=== PATIENT | male | born 1935 | race Caucasian/White ===

== ENCOUNTER → 2018-05-08 05:52 | Outpatient (CLI) | payer MEDICARE, OTHER, SELFPAY ==
[2017-06-21 12:03] VITALS: BMI 30.9
[2018-05-08 07:36] LABS: AST(SGOT) 15 U/L (15-37); Alanine Aminotransfer ALT/SGPT 22 U/L (16-61); Albumin, Serum 3.5 g/dL (3.2-5.0); Alkaline Phosphatase 71 U/L (45-117); Bilirubin, Direct 0.17 mg/dL (0.00-0.30); Cholesterol 118 mg/dL (200); Globulin 3.3 g/dL (2.2-4.2); High Density Lipoprotein 50 mg/dL; Protein, Total 6.8 g/dL (6.4-8.2); Triglycerides 82 mg/dL; Very Low Density Lipoprotein 16 mg/dL (5-40)
== END ==
PROVIDERS: Family Provider Family Medicine; PCP Family Medicine; Visit Provider Internal Medicine Cardiovascular Disease
DX: E78.5 Hyperlipidemia, unspecified (principal); Z79.899 Other long term (current) drug therapy
CPT/HCPCS: 36415; 80061; 80076

== ENCOUNTER → 2018-09-07 08:27 | Outpatient (CLI) | payer MEDICARE, OTHER, SELFPAY ==
[2017-06-21 12:03] VITALS: BMI 30.9
[2018-09-07 10:27] LABS: Anion Gap 5 (5-15); BUN 26 mg/dL (7-18); BUN/Creat Ratio 15.1 RATIO (10-20); Calcium,Total 8.9 mg/dL (8.5-10.1); Chloride 108 mmol/L (98-107); Creatinine, Serum 1.72 mg/dL (0.70-1.30); EST Glomerular Filtration Rate 41 mL/min (>60); Est Glom Filt Rate - Afr Amer 49 mL/min (>60); Glucose 89 mg/dL (74-106); PSA,Total - Annual Screen 1.15 ng/mL (0.00-4.00); Potassium 4.4 mmol/L (3.5-5.1); Sodium Level 141 mmol/L (136-145)
[2018-09-07 11:02] LABS: Vitamin D,25 Hydroxy 27.6 ng/mL (29.95-100.01)
== END ==
PROVIDERS: Family Provider Family Medicine; PCP Family Medicine; Visit Provider Family Medicine
DX: Z00.00 Encounter for general adult medical examination without abnormal findings (principal); Z12.5 Encounter for screening for malignant neoplasm of prostate
CPT/HCPCS: 36415; 80048; 82306; 84153; G0103

== ENCOUNTER → 2018-11-13 06:06 | Outpatient (CLI) | payer MEDICARE, OTHER, SELFPAY ==
[2017-06-21 12:03] VITALS: BMI 30.9
[2018-05-16 09:16] VITALS: BMI 30.8
[2018-11-13 08:06] LABS: AST(SGOT) 14 U/L (15-37); Alanine Aminotransfer ALT/SGPT 24 U/L (16-61); Albumin, Serum 3.4 g/dL (3.2-5.0); Alkaline Phosphatase 66 U/L (45-117); Cholesterol 131 mg/dL (200); High Density Lipoprotein 55 mg/dL; Protein, Total 6.4 g/dL (6.4-8.2); Triglycerides 92 mg/dL; Very Low Density Lipoprotein 18 mg/dL (5-40)
== END ==
PROVIDERS: Family Provider Family Medicine; PCP Family Medicine; Referring Provider Nurse Practitioner Family; Visit Provider Nurse Practitioner Family
DX: E78.5 Hyperlipidemia, unspecified (principal)
CPT/HCPCS: 36415; 80061; 80076

== ENCOUNTER → 2019-01-11 09:37 | Outpatient (CLI) | payer MEDICARE, OTHER, SELFPAY ==
[2017-06-21 12:03] VITALS: BMI 30.9
[2018-12-19 09:48] VITALS: BMI 31.1
--- NOTE | 2019-01-11 09:40 | STEWCON_ITS ---
Reason For Study: CAD Stress Results Protocol: Vincenzo Protocol Maximum Predicted HR: 137 bpm Target HR: 116 bpm % Maximum Predicted HR: 115 % DurationHeart Rate Stage (mm:ss) (bpm) BP Comment Baseline 81 128/80No Chest Pain; Diluted Definity 3 ML Given Vincenzo Protocol Stage I 3:00 127 138/76No Chest Pain Vincenzo Protocol Stage II 3:00 157 160/72No Chest Pain; Mild Dyspnea Recovery 92 120/76No Chest Pain Stress Duration: 6:00 mm:ss Maximum Stress HR: 157 bpm METS: 7 Baseline Echocardiogram Findings The estimated ejection fraction is 65 %. Stress Echo Wall motion Data Resting WM Intermediate WM Stress WM Resting Wall Motion Wall Motion Stress No regional wall motion Mid-Lateral : Severely abnormalities noted. Hypokinetic. Mid-anteroseptal : Mildly hypokinetic. Mid-Anterior : Mildly hypokinetic. EKG Data Normal intervals are noted. The patient exercised according to the regular Vincenzo protocol for a total duration of 6:00. The maximum heart rate attained was 157 beats per minute. This was 114% of maximum predicted heart rate. The patient exercised into stage 3 of the Vincenzo protocol. During stress, there were no ST or T wave changes noted to suggest ischemia. No clinical angina was noted. Interpretation Summary The estimated ejection fraction is 65 %. Mid-Lateral : Severely Hypokinetic. Mid-anteroseptal : Mildly hypokinetic Mid-Anterior : Mildly hypokinetic Abnormal, adequate, treadmill echocardiogram. Positive for ischemia by echocardiographic criteria. No anginal symptoms noted. Rare PVCs and ventricular couplets noted during exercise. Appropriate blood pressure response to exercise. Average exercise capacity for age. Patient developed what appeared to be mid anterior and mid lateral hypokinesis at peak exercise. Final LVEF of 45%. Patient tolerated procedure well. The study was technically difficult. Contrast injection was performed. Ordering Physician: Vinnie Renee Referring Physician: Sunny Justice Performed By: Melissa Verde RDCS, RVT
== END ==
PROVIDERS: Family Provider Family Medicine; PCP Family Medicine; Referring Provider Internal Medicine Cardiovascular Disease; Visit Provider Internal Medicine Cardiovascular Disease
DX: I25.10 Atherosclerotic heart disease of native coronary artery without angina pectoris (principal); I10 Essential (primary) hypertension; E78.5 Hyperlipidemia, unspecified; Z95.5 Presence of coronary angioplasty implant and graft
CPT/HCPCS: 93017; 93350; Q9957; A4216; C8928

== ENCOUNTER → 2019-01-12 05:27 | Outpatient (CLI) | payer MEDICARE, OTHER, SELFPAY ==
[2017-06-21 12:03] VITALS: BMI 30.9
[2018-12-19 09:48] VITALS: BMI 31.1
[2019-01-12 07:25] LABS: Prothrombin Time (Protime)PT. 12.9 SECONDS (11.7-14.9)
[2019-01-12 07:26] LABS: Partial Thromboplast Time 35.2 Seconds (24.1-36.2)
[2019-01-12 07:28] LABS: Hematocrit 45.5 % (40-54); Hemoglobin 14.3 g/dl (13.0-16.5); Mean Corp Hgb Conc 31.4 g/gl (32-36); Mean Corpuscular Hgb 29.5 pg (27.0-32.0); Mean Platelet Vol. 10.3 fl (6.2-12.0); Platelet Count 243 K/mm3 (150-450); RBC Distribution Width CV 13.4 % (11.6-14.6); RBC Distribution Width SD 46.2 fl (35.1-43.9); Red Blood Count 4.84 M/mm3 (4.6-6.2); White Blood Count 6.6 K/mm3 (4.4-11.0)
[2019-01-12 07:30] LABS: Scan Indicated on CBC? Y/N NO
[2019-01-12 07:42] LABS: Anion Gap 6 (5-15); BUN 23 mg/dL (7-18); BUN/Creat Ratio 18.4 RATIO (10-20); Calcium,Total 8.8 mg/dL (8.5-10.1); Chloride 106 mmol/L (98-107); Creatinine, Serum 1.25 mg/dL (0.70-1.30); EST Glomerular Filtration Rate 59 mL/min (>60); Est Glom Filt Rate - Afr Amer 71 mL/min (>60); Glucose 93 mg/dL (74-106); Potassium 4.1 mmol/L (3.5-5.1); Sodium Level 141 mmol/L (136-145)
--- NOTE | 2019-01-12 08:03 | RAD_ITS ---
STUDY: X-RAY CHEST REASON FOR EXAM: Male, 83 years old. Abnormal stress test TECHNIQUE: PA and lateral views of the chest. COMPARISON: June 16, 2017 chest x-ray FINDINGS: The lungs are clear and expanded. There is no demonstrated pleural abnormality. Normal size heart. Normal mediastinum and chong. Normal visualized pulmonary arteries. There is atherosclerotic calcification of the aortic arch with tortuosity. There are diffuse degenerative changes of the visualized thoracic spine. Normal visualized ribs, clavicles, and shoulders. There is no demonstrated abnormality of the visualized soft tissue structures of the upper abdomen. RAD/Chest PA and Lateral IMPRESSION: Degenerative changes, as described above. No demonstrated acute cardiopulmonary process. Electronically Signed: Violet Bass MD at 19:54 EST Tel , Service support ,
== END ==
PROVIDERS: Family Provider Family Medicine; PCP Family Medicine; Referring Provider Internal Medicine Cardiovascular Disease; Visit Provider Internal Medicine Cardiovascular Disease
DX: I25.10 Atherosclerotic heart disease of native coronary artery without angina pectoris (principal); R94.39 Abnormal result of other cardiovascular function study; I48.0 Paroxysmal atrial fibrillation; Z95.5 Presence of coronary angioplasty implant and graft
CPT/HCPCS: 36415; 71046; 80048; 85027; 85610; 85730

== ENCOUNTER 2019-01-17 06:48 | Day surgery (SDC) | payer MEDICARE, OTHER, SELFPAY ==
[2017-06-21 12:03] VITALS: BMI 30.9
[2018-12-19 09:48] VITALS: BMI 31.1
[2019-01-12 11:25] VITALS: BMI 31.7
[2019-01-16 06:59] VITALS: BMI 31.5
--- NOTE | 2019-01-17 08:22 | CL.D_ITS ---
Patient Name: MOLLY ANDERSEN Study Date: 01/17/2019 Performing: Vinnie Renee MD Ht: 70.07 inches 178 cm : 1935 Wt: 220.46 lbs 100 kg Age: 83 Gender: male BSA: 2.18 PROCEDURE(S) PERFORMED [id number]/COR/LV CLINICAL PROFILE AND INDICATIONS Indications: Stable Known CAD, Stable Known CAD Heart Failure: None Stress/Imaging Date: 01/11/2019Stress Echocardiogram: Positive Low Risk Angina Classification Anginal Classification w/in 2 Weeks: No symptoms CAD Presentations: No Sxs, no angina. Comorbidities/Risk Factors: Hypertension Dyslipidemia Prior PCI CONCLUSIONS Non obstructive coronary arteries Normal LV size, wall motion,and systolic function False positive stress test. RECOMMENDATIONS Management as per referring Cranberry Sorter DESCRIPTION OF PROCEDURE The patient arrived to the procedure lab. The risks and benefits of the procedure as well as a full d escription of our services here and current unavailability of surgical backup were fully explained to the patient and/or their significant other prior to the catheterization. The Timeout was completed, verifying the correct patient and procedure. The patient's procedural site was prepped and draped in the usual fashion. Local anesthetic was given subcutaneously to right groin region with Lidocaine 2%. Using a modified Seldinger technique, arterial access was obtained via the right femoral artery, a 4 Fr sheath was inserted Left Coronary Artery selective angiography was performed in multiple views us ing a 4 Fr. JL5 catheter. Right Coronary Artery selective angiography was then performed in multiple views using a 4 Fr. 3DRC catheter. Left Ventriculography was performed in MCKEE projection using a 4 Fr . Pigtail catheter. LV to AO pullback pressures were then recorded.The arterial sheath was pulled and manual compression applied until hemostasis is achieved. CORONARY ANGIOGRAPHY DOMINANCE: Right Dominant LEFT HEART ASSESSMENT Left Ventricular Ejection Fraction: by LV Gram 65 % Normal LV wall motion Normal Left Ventricular systolic function LEFT MAIN: Angiographically normal LEFT ANTERIOR DECENDING ARTERY: PROX LAD: Mild luminal irregularities less than 30% MID LAD: Previously placed stent is patent DISTAL LAD: Mild luminal irregularities less than 30% CIRCUMFLEX ARTERY: OM 1: Proximal - Previously placed stent is patent RIGHT CORONARY ARTERY: MID RCA: Mild calcification, Mild luminal irregularities less than 30% RT PDA: Mid - Mild luminal irregularities less than 30% COMPLICATIONS No Complications PROCEDURE MEDICATIONS Versed 1 mg IV Oxygen: 2 L/min via nasal cannula IV Fluids: .9 NaCl increased to WO ml/hr 01/17/2019 08:06:07 SUMMARY OF HEMODYNAMIC DATA Time AIR REST ECG 07:12:41 AO 111/64 (81) SA 08:05:23 LV 117/-20, 2 08:13:03 LV 112/-22, 1 08:13:09 LVp 113/-23, 0 08:13:16 AOp 113/51 (78) 08:13:21 Signed By Vinnie Renee MD On 01/17/2019 08:21:39 Vinnie Renee MD
== END 2019-01-17 12:45 | disposition home or self-care (01) ==
LOC: CLSP 06:48
PROVIDERS: Family Provider Family Medicine; PCP Family Medicine; Referring Provider Internal Medicine Cardiovascular Disease; Visit Provider Internal Medicine Cardiovascular Disease
DX: I25.10 Atherosclerotic heart disease of native coronary artery without angina pectoris (principal); I48.0 Paroxysmal atrial fibrillation; I10 Essential (primary) hypertension; E78.5 Hyperlipidemia, unspecified; N40.0 Benign prostatic hyperplasia without lower urinary tract symptoms; E66.9 Obesity, unspecified; Z79.02 Long term (current) use of antithrombotics/antiplatelets; Z79.82 Long term (current) use of aspirin; Z79.899 Other long term (current) drug therapy; Z87.891 Personal history of nicotine dependence; Z95.5 Presence of coronary angioplasty implant and graft
CPT/HCPCS: 93458; 99152; J7040; C1769; C1894; Q9967

== ENCOUNTER → 2019-04-09 | Outpatient (CLI) | payer MEDICARE, OTHER, SELFPAY ==
[2017-06-21 12:03] VITALS: BMI 30.9
[2019-04-09 06:03] VITALS: BMI 31.7
[2019-04-09 08:01] LABS: AST(SGOT) 20 U/L (15-37); Alanine Aminotransfer ALT/SGPT 25 U/L (16-61); Albumin, Serum 3.6 g/dL (3.2-5.0); Alkaline Phosphatase 63 U/L (45-117); Bilirubin, Direct 0.23 mg/dL (0.00-0.30); Cholesterol 131 mg/dL (200); Globulin 3.1 g/dL (2.2-4.2); High Density Lipoprotein 60 mg/dL; Protein, Total 6.7 g/dL (6.4-8.2); Triglycerides 92 mg/dL; Very Low Density Lipoprotein 18 mg/dL (5-40)
== END | disposition home or self-care (01) ==
LOC: LAB 06:05
PROVIDERS: Family Provider Family Medicine; PCP Family Medicine; Referring Provider Nurse Practitioner Family; Visit Provider Nurse Practitioner Family
DX: E78.5 Hyperlipidemia, unspecified (principal)
CPT/HCPCS: 36415; 80061; 80076

== ENCOUNTER → 2019-09-24 05:56 | Outpatient (CLI) | payer MEDICARE, OTHER, SELFPAY ==
[2017-06-21 12:03] VITALS: BMI 30.9
[2019-08-23 08:45] VITALS: BMI 30.5
[2019-09-24 08:08] LABS: Anion Gap 4 (5-15); BUN 21 mg/dL (7-18); BUN/Creat Ratio 17.6 RATIO (10-20); Calcium,Total 9.3 mg/dL (8.5-10.1); Chloride 108 mmol/L (98-107); Cholesterol 152 mg/dL (200); Creatinine, Serum 1.19 mg/dL (0.70-1.30); EST Glomerular Filtration Rate 62 mL/min (>60); Est Glom Filt Rate - Afr Amer 75 mL/min (>60); Glucose 95 mg/dL (74-106); High Density Lipoprotein 60 mg/dL; PSA,Total - Annual Screen 1.11 ng/mL (0.00-4.00); Potassium 4.2 mmol/L (3.5-5.1); Sodium Level 143 mmol/L (136-145); Triglycerides 105 mg/dL; Very Low Density Lipoprotein 21 mg/dL (5-40)
== END ==
PROVIDERS: Family Provider Family Medicine; PCP Family Medicine; Referring Provider Family Medicine; Visit Provider Family Medicine
DX: Z00.00 Encounter for general adult medical examination without abnormal findings (principal)
CPT/HCPCS: 36415; 80048; 80061; 84153; G0103

== ENCOUNTER → 2020-03-20 08:53 | Outpatient (CLI) | payer MEDICARE, OTHER, SELFPAY ==
[2017-06-21 12:03] VITALS: BMI 30.9
[2019-12-20 09:46] VITALS: BMI 29.8
[2020-03-20 09:57] LABS: Anion Gap 8 (5-15); BUN 24 mg/dL (7-18); BUN/Creat Ratio 17.1 RATIO (10-20); Calcium,Total 9.2 mg/dL (8.5-10.1); Chloride 105 mmol/L (98-107); EST Glomerular Filtration Rate 51 mL/min (>60); Est Glom Filt Rate - Afr Amer 62 mL/min (>60); Glucose 92 mg/dL (74-106); Potassium 4.3 mmol/L (3.5-5.1); Sodium Level 142 mmol/L (136-145)
== END ==
PROVIDERS: PCP Family Medicine; Referring Provider Family Medicine; Visit Provider Family Medicine
DX: I25.10 Atherosclerotic heart disease of native coronary artery without angina pectoris (principal)
CPT/HCPCS: 36415; 80048

== ENCOUNTER → 2020-06-27 06:19 | Outpatient (CLI) | payer MEDICARE, OTHER, SELFPAY ==
[2017-06-21 12:03] VITALS: BMI 30.9
[2020-06-24 08:57] VITALS: BMI 29.9
[2020-06-27 08:06] LABS: AST(SGOT) 17 U/L (15-37); Alanine Aminotransfer ALT/SGPT 21 U/L (16-61); Albumin, Serum 3.5 g/dL (3.2-5.0); Alkaline Phosphatase 64 U/L (45-117); Bilirubin, Direct 0.23 mg/dL (0.00-0.30); Cholesterol 133 mg/dL (200); High Density Lipoprotein 53 mg/dL; Protein, Total 6.5 g/dL (6.4-8.2); Triglycerides 83 mg/dL; Very Low Density Lipoprotein 17 mg/dL (5-40)
== END ==
PROVIDERS: PCP Family Medicine; Referring Provider Internal Medicine Cardiovascular Disease; Visit Provider Internal Medicine Cardiovascular Disease
DX: E78.5 Hyperlipidemia, unspecified (principal); I25.10 Atherosclerotic heart disease of native coronary artery without angina pectoris
CPT/HCPCS: 36415; 80061; 80076

== ENCOUNTER → 2020-09-19 10:51 | Outpatient (CLI) | payer MEDICARE, OTHER, SELFPAY ==
[2017-06-21 12:03] VITALS: BMI 30.9
[2020-06-24 08:57] VITALS: BMI 29.9
[2020-09-19 11:45] LABS: Anion Gap 3 (5-15); BUN 30 mg/dL (7-18); BUN/Creat Ratio 20.3 RATIO (10-20); Calcium,Total 8.7 mg/dL (8.5-10.1); Chloride 105 mmol/L (98-107); Creatinine, Serum 1.48 mg/dL (0.70-1.30); EST Glomerular Filtration Rate 48 mL/min (>60); Est Glom Filt Rate - Afr Amer 58 mL/min (>60); Glucose 92 mg/dL (74-106); Potassium 4.1 mmol/L (3.5-5.1); Sodium Level 139 mmol/L (136-145)
== END ==
PROVIDERS: PCP Family Medicine; Visit Provider Family Medicine
DX: N28.9 Disorder of kidney and ureter, unspecified (principal)
CPT/HCPCS: 36415; 80048

== ENCOUNTER → 2021-03-20 08:06 | Outpatient (CLI) | payer MEDICARE, OTHER, SELFPAY ==
[2017-06-21 12:03] VITALS: BMI 30.9
[2020-10-14 11:09] VITALS: BMI 29.9
[2021-03-20 10:15] LABS: ALB/GLOB Ratio 1.2 RATIO (0.9-2.4); AST(SGOT) 13 U/L (15-37); Alanine Aminotransfer ALT/SGPT 19 U/L (16-61); Albumin, Serum 3.7 g/dL (3.2-5.0); Alkaline Phosphatase 85 U/L (45-117); Anion Gap 4 (5-15); BUN 31 mg/dL (7-18); BUN/Creat Ratio 20.7 RATIO (10-20); Calcium,Total 9.3 mg/dL (8.5-10.1); Chloride 107 mmol/L (98-107); Cholesterol 143 mg/dL (200); EST Glomerular Filtration Rate 47 mL/min (>60); Est Glom Filt Rate - Afr Amer 57 mL/min (>60); Globulin 3.2 g/dL (2.2-4.2); Glucose 86 mg/dL (74-106); High Density Lipoprotein 70 mg/dL; Potassium 4.4 mmol/L (3.5-5.1); Protein, Total 6.9 g/dL (6.4-8.2); Sodium Level 140 mmol/L (136-145); Triglycerides 74 mg/dL; Very Low Density Lipoprotein 15 mg/dL (5-40)
== END ==
PROVIDERS: PCP Family Medicine; Referring Provider Family Medicine; Visit Provider Family Medicine
DX: E78.5 Hyperlipidemia, unspecified (principal)
CPT/HCPCS: 36415; 80053; 80061

== ENCOUNTER 2021-08-15 09:36 | Outpatient (CLI) | payer MEDICARE, OTHER, SELFPAY ==
[2017-06-21 12:03] VITALS: BMI 30.9
[2021-08-15] MEDS: 0.9% Saline Lock 10 ML Syringe IV (09:56)
[2021-08-15 10:01] VITALS: BP 129/81; PULSE 100; RESP 16; TEMP 36.6; O2SAT 94; BMI 28.7
[2021-08-15 10:45] VITALS: BP 112/70; PULSE 76; RESP 16; TEMP 36.9; O2SAT 98
[2021-08-15 11:52] VITALS: BP 128/84; PULSE 83; RESP 16; TEMP 36.7; O2SAT 96
== END 2021-08-15 11:45 | disposition home or self-care (01) ==
LOC: MS3OUT 09:37 → MS3 09:38
PROVIDERS: PCP Family Medicine; Referring Provider Nurse Practitioner Adult Health; Visit Provider Nurse Practitioner Adult Health
DX: Z23 Encounter for immunization (principal); U07.1 COVID-19
CPT/HCPCS: J7050; M0243; A4216; Q0240

== ENCOUNTER → 2021-09-17 11:47 | Outpatient (CLI) | payer MEDICARE, OTHER, SELFPAY ==
[2017-06-21 12:03] VITALS: BMI 30.9
[2021-09-17 13:20] LABS: Anion Gap 6 (5-15); BUN 26 mg/dL (7-18); BUN/Creat Ratio 17.6 RATIO (10-20); Calcium,Total 9.5 mg/dL (8.5-10.1); Chloride 103 mmol/L (98-107); Creatinine, Serum 1.48 mg/dL (0.70-1.30); EST Glomerular Filtration Rate 48 mL/min (>60); Est Glom Filt Rate - Afr Amer 58 mL/min (>60); Glucose 111 mg/dL (74-106); Potassium 4.3 mmol/L (3.5-5.1); Sodium Level 139 mmol/L (136-145)
== END ==
PROVIDERS: PCP Family Medicine; Referring Provider Family Medicine; Visit Provider Family Medicine
DX: I10 Essential (primary) hypertension (principal)
CPT/HCPCS: 36415; 80048

== ENCOUNTER → 2022-03-18 | Outpatient (CLI) | payer MEDICARE, OTHER, SELFPAY ==
[2017-06-21 12:03] VITALS: BMI 30.9
[2022-03-18 10:12] LABS: Anion Gap 4 (5-15); BUN 28 mg/dL (7-18); BUN/Creat Ratio 17.6 RATIO (10-20); Calcium,Total 9.4 mg/dL (8.5-10.1); Chloride 106 mmol/L (98-107); Cholesterol 146 mg/dL (200); Creatinine, Serum 1.59 mg/dL (0.70-1.30); EST Glomerular Filtration Rate 44 mL/min (>60); Est Glom Filt Rate - Afr Amer 53 mL/min (>60); Glucose 97 mg/dL (74-106); High Density Lipoprotein 64 mg/dL; Potassium 4.9 mmol/L (3.5-5.1); Sodium Level 141 mmol/L (136-145); Triglycerides 76 mg/dL; Very Low Density Lipoprotein 15 mg/dL (5-40)
== END | disposition home or self-care (01) ==
LOC: MFPLAB 08:36
PROVIDERS: PCP Family Medicine; Visit Provider Family Medicine
DX: I10 Essential (primary) hypertension (principal)
CPT/HCPCS: 36415; 80048; 80061

== ENCOUNTER → 2022-09-03 | Outpatient (CLI) | payer MEDICARE, OTHER, SELFPAY ==
[2017-06-21 12:03] VITALS: BMI 30.9
--- NOTE | 2022-09-03 12:28 | RAD_ITS ---
STUDY: X-RAY CHEST REASON FOR EXAM: Male, 87 years old. SOB, lung sounds dim with rales, prod cough TECHNIQUE: PA or AP. Lateral. COMPARISON: 01/12/2019 FINDINGS: The lungs are clear and expanded. There is no demonstrated pleural abnormality. Normal size heart. Normal mediastinum and chong. Normal visualized pulmonary arteries. Mildly tortuous descending aorta. Moderate degenerative changes mid and lower thoracic spine. Normal visualized ribs, clavicles, and shoulders. There is no demonstrated abnormality of the visualized soft tissue structures of the upper abdomen. Stable findings. RAD/Chest PA and Lateral IMPRESSION: Degenerative changes mid and lower thoracic spine. Mildly tortuous descending aorta. Electronically Signed: Fidencio Marshall MD, ANA at 13:24 EDT ,
[2022-09-03 13:31] LABS: Hematocrit 48.6 % (40-54); Hemoglobin 16.2 g/dL (13.0-16.5); Mean Corp Hgb Conc 33.3 g/dL (32-36); Mean Corpuscular Hgb 31.5 pg (27.0-32.0); Mean Corpuscular Volume 94.4 fL (80-94); Mean Platelet Vol. 10.1 fl (6.2-12.0); Platelet Count 271 K/mm3 (150-450); RBC Distribution Width CV 13.6 % (11.6-14.6); Red Blood Count 5.15 M/mm3 (4.6-6.2); White Blood Count 8.6 K/mm3 (4.4-11.0)
[2022-09-03 13:39] LABS: Prothrombin Time (Protime)PT. 12.9 SECONDS (11.7-14.9)
[2022-09-03 14:05] LABS: BNP,B-Type NATRIURETIC PEPTIDE 327.6 pg/mL (0-100)
[2022-09-03 14:17] LABS: Anion Gap 4 (5-15); BUN 25 mg/dL (7-18); BUN/Creat Ratio 14.6 RATIO (10-20); Calcium,Total 10.3 mg/dL (8.5-10.1); Chloride 106 mmol/L (98-107); Creatinine, Serum 1.71 mg/dL (0.70-1.30); EST Glomerular Filtration Rate 40 mL/min (>60); Est Glom Filt Rate - Afr Amer 49 mL/min (>60); Glucose 102 mg/dL (74-106); Magnesium 2.1 mg/dL (1.6-2.6); Potassium 4.5 mmol/L (3.5-5.1); Sodium Level 139 mmol/L (136-145); T4 Total, Thyroxin 8.6 ug/dL (4.5-12.1); Thyroid Stim Hormone (TSH) 3.66 uIU/mL (0.358-3.74)
== END | disposition home or self-care (01) ==
LOC: RAD 12:14
PROVIDERS: PCP Family Medicine; Referring Provider Internal Medicine Cardiovascular Disease; Visit Provider Internal Medicine Cardiovascular Disease
DX: R06.02 Shortness of breath (principal); I48.0 Paroxysmal atrial fibrillation; R07.89 Other chest pain; I25.10 Atherosclerotic heart disease of native coronary artery without angina pectoris; Z95.5 Presence of coronary angioplasty implant and graft; I10 Essential (primary) hypertension; R05.8 Other specified cough
CPT/HCPCS: 36415; 71046; 80048; 83735; 83880; 84436; 84443; 85027; 85610

== ENCOUNTER → 2022-09-09 | Outpatient (CLI) | payer MEDICARE, OTHER, SELFPAY ==
[2017-06-21 12:03] VITALS: BMI 30.9
--- NOTE | 2022-09-09 13:46 | ECHOD_ITS ---
Reason For Study: AFIB.FLUTTER Procedure This was a 2D Doppler, Color Flow transthoracic echocardiogram. Exam performed in department. Left Ventricle Normal LV size. The estimated ejection fraction is 40 %. Stage 3 diastolic dysfunction. There is mild global hypokinesis of the left ventricle. Right Ventricle Normal RV size. Normal systolic function. Atria The left atrium is moderately enlarged. The right atrium is mildly enlarged. Mitral Valve There is mild mitral annular calcification. Mild (1+) eccentric mitral valve insufficiency. Tricuspid Valve Normal tricuspid valve. Mild (1+) tricuspid valve insufficiency. Pulmonary artery systolic pressure is 35 mmHg. Aortic Valve Trisinus/trileaflet aortic valve. Mild focal aortic valve calcification. Pulmonic Valve Normal pulmonic valve. Great Vessels Normal aortic root. The pulmonary artery is normal size. Normal inferior vena cava. Pericardium/Pleural No pericardial effusion. MMode/2D Measurements & Calculations LVIDd: 4.8 cm IVSd: 0.91 cm Ao root diam: 3.9 cm LVIDs: 3.7 cm LVPWd: 1.1 cm FS: 23.1 % LAV(MOD-bp): 113.9 ml LVAd ap4: 29.0 cm2 LVAd ap2: 24.4 cm2 LAV(MOD-bp) Indexed: 54.0 ml/m2 LVLd ap4: 7.7 cm LVLd ap2: 7.7 cm LAV(MOD-sp2): 125.3 ml EDV(MOD-sp4): 94.9 ml EDV(MOD-sp2): 66.9 ml LAV(MOD-sp4): 102.9 ml EDV(sp4-el): 92.8 ml EDV(sp2-el): 65.0 ml LVAs ap4: 22.0 cm2 LVAs ap2: 17.2 cm2 LVLs ap4: 7.2 cm LVLs ap2: 7.3 cm ESV(MOD-sp4): 58.4 ml ESV(MOD-sp2): 35.3 ml ESV(sp4-el): 57.1 ml ESV(sp2-el): 34.2 ml EF(MOD-sp4): 38.5 % EF(MOD-sp2): 47.3 % EF(sp4-el): 38.4 % SV(MOD-sp4): 36.5 ml SV(MOD-sp2): 31.6 ml SV(sp4-el): 35.6 ml LA dimension(2D): 5.4 cm LA A4 area: 29.4 cm2 RA A4 area: 26.6 cm2 Time Measurements MV dec time: 0.19 sec Doppler Measurements & Calculations MV E max will: 89.8 cm/sec Lat Peak E' Will: 6.9 cm/sec Med Peak E' Iwll: 4.1 cm/sec MV A max will: 30.5 cm/sec E/E' lat: 13.1 E/E' med: 22.1 MV E/A: 2.9 MV dec slope: 483.5 cm/sec2 Ao V2 max: 185.0 cm/sec LV V1 max: 77.9 cm/sec Ao max P.8 mmHg LV V1 max P.4 mmHg Ao V2 mean: 131.6 cm/sec LV V1 mean P.1 mmHg Ao mean P.9 mmHg LV V1 mean: 49.1 cm/sec Ao V2 VTI: 37.7 cm LV V1 VTI: 15.6 cm PA V2 max: 82.3 cm/sec TR max will: 305.9 cm/sec TR max P.8 mmHg ECHO/Echo Complete Interpretation Summary Normal LV size. The estimated ejection fraction is 40 %. There is mild global hypokinesis of the left ventricle. The left atrium is moderately enlarged. Pulmonary artery systolic pressure is 35 mmHg. Stage 3 diastolic dysfunction. The right atrium is mildly enlarged. Ordering Physician: Keyshawn Do Referring Physician: Sunny Justice Performed By: Melissa Verde, RDCS, RVT
== END | disposition home or self-care (01) ==
LOC: CVS 13:45
PROVIDERS: PCP Family Medicine; Referring Provider Nurse Practitioner Gerontology; Visit Provider Nurse Practitioner Gerontology
DX: R06.09 Other forms of dyspnea (principal); I48.91 Unspecified atrial fibrillation; I25.10 Atherosclerotic heart disease of native coronary artery without angina pectoris; Z95.5 Presence of coronary angioplasty implant and graft
CPT/HCPCS: 93306

== ENCOUNTER 2022-10-05 08:02 | Outpatient (RCR) | payer MEDICARE, OTHER, SELFPAY ==
[2017-06-21 12:03] VITALS: BMI 30.9
[2022-09-07 10:41] LABS: International Normalized Ratio 1.4; Prothrombin Time (Protime)PT. 16.6 SECONDS (11.7-14.9)
[2022-09-07 10:54] LABS: Anion Gap 10 (5-15); BUN 52 mg/dL (7-18); BUN/Creat Ratio 20.7 RATIO (10-20); Calcium,Total 9.8 mg/dL (8.5-10.1); Chloride 98 mmol/L (98-107); Creatinine, Serum 2.51 mg/dL (0.70-1.30); EST Glomerular Filtration Rate 26 mL/min (>60); Est Glom Filt Rate - Afr Amer 31 mL/min (>60); Glucose 121 mg/dL (74-106); Potassium 3.7 mmol/L (3.5-5.1); Sodium Level 138 mmol/L (136-145)
[2022-09-14 09:14] LABS: Prothrombin Time (Protime)PT. 55.8 SECONDS (11.7-14.9)
[2022-09-14 09:18] LABS: International Normalized Ratio 6.3
[2022-09-14 09:37] LABS: Anion Gap 5 (5-15); BUN 31 mg/dL (7-18); BUN/Creat Ratio 18.6 RATIO (10-20); Calcium,Total 9.1 mg/dL (8.5-10.1); Chloride 107 mmol/L (98-107); Creatinine, Serum 1.67 mg/dL (0.70-1.30); EST Glomerular Filtration Rate 42 mL/min (>60); Est Glom Filt Rate - Afr Amer 50 mL/min (>60); Glucose 98 mg/dL (74-106); Potassium 4.5 mmol/L (3.5-5.1); Sodium Level 141 mmol/L (136-145)
[2022-09-17 10:10] LABS: International Normalized Ratio 5.8
[2022-09-20 09:06] LABS: Hematocrit 44.2 % (40-54); Hemoglobin 14.6 g/dL (13.0-16.5); Mean Corpuscular Hgb 31.2 pg (27.0-32.0); Mean Corpuscular Volume 94.4 fL (80-94); Mean Platelet Vol. 9.8 fl (6.2-12.0); Platelet Count 243 K/mm3 (150-450); RBC Distribution Width CV 13.9 % (11.6-14.6); RBC Distribution Width SD 47.7 fl (35.1-43.9); Red Blood Count 4.68 M/mm3 (4.6-6.2); White Blood Count 6.7 K/mm3 (4.4-11.0)
[2022-09-20 09:27] LABS: Prothrombin Time (Protime)PT. 51.2 SECONDS (11.7-14.9)
[2022-09-20 09:29] LABS: BNP,B-Type NATRIURETIC PEPTIDE 203.9 pg/mL (0-100); International Normalized Ratio 5.7
[2022-09-20 09:30] LABS: Anion Gap 7 (5-15); BUN 28 mg/dL (7-18); BUN/Creat Ratio 15.6 RATIO (10-20); Chloride 104 mmol/L (98-107); Creatinine, Serum 1.79 mg/dL (0.70-1.30); EST Glomerular Filtration Rate 38 mL/min (>60); Est Glom Filt Rate - Afr Amer 46 mL/min (>60); Glucose 110 mg/dL (74-106); Potassium 4.3 mmol/L (3.5-5.1); Sodium Level 140 mmol/L (136-145)
[2022-09-22 07:22] LABS: Prothrombin Time (Protime)PT. 62.6 SECONDS (11.7-14.9)
[2022-09-22 08:53] LABS: International Normalized Ratio 7.3
[2022-09-22 09:36] LABS: AST(SGOT) 16 U/L (15-37); Alanine Aminotransfer ALT/SGPT 21 U/L (16-61); Albumin, Serum 3.6 g/dL (3.2-5.0); Alkaline Phosphatase 65 U/L (45-117); Bilirubin, Direct 0.22 mg/dL (0.00-0.30); Globulin 3.1 g/dL (2.2-4.2); Protein, Total 6.7 g/dL (6.4-8.2)
[2022-09-24 09:02] LABS: Prothrombin Time (Protime)PT. 46.8 SECONDS (11.7-14.9)
[2022-09-24 09:08] LABS: International Normalized Ratio 5.1
[2022-09-27 08:59] LABS: International Normalized Ratio 1.8; Prothrombin Time (Protime)PT. 20.5 SECONDS (11.7-14.9)
[2022-09-29 07:00] LABS: International Normalized Ratio 1.4; Prothrombin Time (Protime)PT. 16.8 SECONDS (11.7-14.9)
[2022-10-05 08:34] LABS: International Normalized Ratio 1.1; Prothrombin Time (Protime)PT. 13.9 SECONDS (11.7-14.9)
== END 2022-10-06 18:00 | disposition home or self-care (01) ==
LOC: LAB 08:02
PROVIDERS: Nurse Practitioner Family; Nurse Practitioner Gerontology; Physician Assistant Medical; PCP Family Medicine; Referring Provider Internal Medicine Cardiovascular Disease; Visit Provider Internal Medicine Cardiovascular Disease
DX: I48.0 Paroxysmal atrial fibrillation (principal); Z98.890 Other specified postprocedural states; R79.89 Other specified abnormal findings of blood chemistry; I50.20 Unspecified systolic (congestive) heart failure; I25.10 Atherosclerotic heart disease of native coronary artery without angina pectoris; Z95.5 Presence of coronary angioplasty implant and graft
CPT/HCPCS: 36415; 80048; 80076; 83880; 85027; 85610

== ENCOUNTER 2022-10-09 10:23 | Emergency (ER) | payer MEDICARE, OTHER, SELFPAY ==
[2017-06-21 12:03] VITALS: BMI 30.9
[2022-10-09 10:24] VITALS: BP 134/87; PULSE 73; RESP 20; TEMP 35.7; O2SAT 96; BMI 29.2
--- NOTE | 2022-10-09 10:39 | RAD_ITS ---
STUDY: X-RAY CHEST REASON FOR EXAM: Male, 87 years old. sob, cough TECHNIQUE: Single AP portable view of the chest. COMPARISON: 09/03/2022 FINDINGS: The lungs are clear and expanded. There is no demonstrated pleural abnormality. Normal size heart. Normal mediastinum and chong. Normal visualized pulmonary arteries. Normal visualized aortic arch and descending thoracic aorta. Normal visualized thoracic spine. Normal visualized ribs, clavicles, and shoulders. There is no demonstrated abnormality of the visualized soft tissue structures of the upper abdomen. RAD/Chest 1 View (Portable) IMPRESSION: Normal x-ray examination of the chest. Electronically Signed: Octaviano Ascencio MD at 11:08 EST ,
--- NOTE | 2022-10-09 10:40 | EKG12_ITS ---
Test Reason : SOB Blood Pressure : / mmHG Vent. Rate : 117 BPM Atrial Rate : 102 BPM P-R Int : 000 ms QRS Dur : 128 ms QT Int : 350 ms P-R-T Axes : 000 -83 078 degrees QTc Int : 488 ms Atrial fibrillation with premature ventricular or aberrantly conducted complexes Left axis deviation Non-specific intra-ventricular conduction block Abnormal ECG Confirmed by DEBORA RICCI, KRIS ([id number]), senior editor KP DEGROOT ([id number]) on 10/12/2022 12:36:29 PM Referred By: GLADIS Confirmed By:KRIS CAZARES MD
--- NOTE | 2022-10-09 10:41 | EDS_ITS ---
HPI History of Present Illness Chief Complaint: Shortness of Breath Informant: patient and spouse/S.O. Onset/Context/Timing Onset: Weeks Context: Gradual Onset Current Severity: Mild Maximum Severity: Moderate Narrative Narrative: Patient present secondary to shortness of breath. He states he is had increasing shortness of breath for the last 3 weeks or so, worse over the past couple days. He has had a cough with yellow sputum production. No fever or chills. No chest pain. He has had recent medication adjustments by his bin operator. He is currently on Coumadin secondary to a history of A. fib. [facility] Medical History Atherosclerosis of coronary artery of [place] heart without angina pectoris BPH (benign prostatic hyperplasia) COVID-19 Essential hypertension GI bleed HFrEF (heart failure with reduced ejection fraction) Hyperlipidemia Nasal congestion Obesity (BMI 30.0-34.9) PAF (paroxysmal atrial fibrillation) (09/03/22) Home Medications cholecalciferol (vitamin D3) 25 mcg (1,000 unit) tablet 1,000 unit PO DAILY 08/23/19 [History Last Taken Unknown] ilpeodph-ohk-idzvp acid 0.4 mg-lycopene 300 mcg-lutein 250 mcg tablet 1 tab PO DAILY 12/20/19 [History Last Taken Unknown] atorvastatin 20 mg tablet 20 mg PO QHS #90 tabs 02/18/22 [Rx Last Taken Unknown] furosemide 40 mg tablet 40 mg PO DAILY #30 tabs 09/10/22 [Rx Last Taken Unknown] warfarin 1 mg tablet 1 mg PO DAILY #30 tabs 09/27/22 [Rx Last Taken Unknown] sacubitril 24 mg-valsartan 26 mg tablet (Entresto) 1 tab PO BID #60 tabs 10/05/22 [Rx Last Taken Unknown] azithromycin 250 mg tablet (Zithromax Z-Carmelo) See Rx Instructions PO .COMPLEX #6 tabs 10/09/22 [Rx Last Taken Unknown] Allergy/AdvReac Type Severity Reaction Status Date / Time rivaroxaban [From Xarelto] AdvReac Severe Excessive Verified 10/09/22 10:24 bleeding Family History Son CAD (coronary artery disease) Surgical History H/O hand surgery History of arthroscopic knee surgery History of cardioversion (~02/27/14) History of coronary artery stent placement (06/21/17) History of herniorrhaphy History of left heart catheterization (01/17/19) History of repair of rotator cuff Social History Smoking Status: Former smoker how long ago did patient quit smokin years ago alcohol intake: current alcohol intake frequency: a few times a month Alcohol type: other substance use type: does not use caffeine: Yes Type: coffee Number of servings: 2 ROS ROS ED Constitutional Constitutional ED: Denies chills or fever(s) Eyes Eyes: Denies change in vision or discharge from eye(s) ENT ENT ED: Denies discharge from eye(s), rhinorrhea or sore throat Cardiovascular Cardiovascular: Denies chest pain or palpitations Respiratory/Chest Respiratory/Chest: Reports cough, dyspnea and sputum Gastrointestinal Gastrointestinal: Denies abdominal pain, diarrhea, nausea or vomiting Genitourinary Genitourinary ED: Denies difficulty urinating or dysuria Musculoskeletal Musculoskeletal: Denies back pain or extremity pain Integumentary Denies Abrasions or rash Neurologic Neurologic: Reports weakness; Denies headache(s) Allergic/Immunologic Allergic/Immunologic ED: Denies lip swelling or urticaria EXAM Physical Exam Const Vital Signs: 10/09/22 10:24 10/09/22 10:57 Temperature 96.3 F L Temperature Source Temporal Pulse Rate 73 Respiratory Rate 20 H Respiratory Effort Normal Non-Labored Respiratory Depth Normal Respiratory Pattern Normal Blood Pressure 134/87 H Blood Pressure Mean 102 Pulse Ox 96 Oxygen Delivery Method Room Air Positive well nourished and well developed General Appearance ED: well developed HEENT Reports normocephalic and head/scalp atraumatic Eyes PERRL and EOMs intact bilaterally Neck supple Chest Wall inspection of chest normal and palpation of chest normal Resp normal respiratory effort and clear to auscultation bilaterally Cardio Rhythm: abnormal rhythm irregularly irregular GI normal to inspection, nondistended, normoactive bowel sounds Palpation: soft Back/Spine no CVA tenderness Extremity normal to inspection Neuro oriented x3 and no sensory deficits noted Sensorium / Orientation: alert Motor Exam: strength 5/5 throughout Psych mental status grossly normal Skin no rashes or lesions noted MDM MDM MDM Narrative Medical decision making narrative: Patient placed on phototypesetting equipment monitor. EKG, chest x-ray, lab work obtained. Swab for COVID and influenza ordered. Lab Data Attestation: I reviewed the patient's lab results. Labs: Laboratory Results - last 24 hr 10/09/22 10/09/22 10/09/22 10:50 10:50 10:50 WBC 9.8 RBC 4.86 Hgb 14.8 Hct 46.4 MCV 95.5 H MCH 30.5 MCHC 31.9 L RDW Std Deviation 46.7 H RDW Coeff of Yadira 13.2 Plt Count 295 MPV 10.1 Immature Gran % (Auto) 0.300 Neut % (Auto) 77.8 H Lymph % (Auto) 12.0 L Navarro % (Auto) 6.9 Eos % (Auto) 2.6 Baso % (Auto) 0.4 Absolute Neuts (auto) 7.7 Absolute Lymphs (auto) 1.18 Nucleated RBC % 0 PT 16.7 H INR 1.4 Sodium 139 Potassium 4.8 Chloride 107 Carbon Dioxide 28.0 Anion Gap 4 L BUN 22 H Creatinine 1.61 H Estim Creat Clear Calc 34.43 Est GFR (MDRD) Af Amer 52 L Est GFR (MDRD) Non-Af 43 L BUN/Creatinine Ratio 13.7 Glucose 134 H Calcium 9.7 Troponin I High Sens 21 B-Natriuretic Peptide 10/09/22 10:50 WBC RBC Hgb Hct MCV MCH MCHC RDW Std Deviation RDW Coeff of Yadira Plt Count MPV Immature Gran % (Auto) Neut % (Auto) Lymph % (Auto) Navarro % (Auto) Eos % (Auto) Baso % (Auto) Absolute Neuts (auto) Absolute Lymphs (auto) Nucleated RBC % PT INR Sodium Potassium Chloride Carbon Dioxide Anion Gap BUN Creatinine Estim Creat Clear Calc Est GFR (MDRD) Af Amer Est GFR (MDRD) Non-Af BUN/Creatinine Ratio Glucose Calcium Troponin I High Sens B-Natriuretic Peptide 185.4 H Radiography Chest X-Ray - ED: 1 View, Read by ED Physician, Normal, Heart, Lungs and Mediastinum Diagnostic Testing: Clinical Impression(s) from Imaging Studies Chest X-Ray 10/09/22 10:39 IMPRESSION: Normal x-ray examination of the chest. Electronically Signed: Octaviano Ascencio MD at 11:08 EST , EKG Initial EKG: Attestation: I personally reviewed and interpreted this EKG as follows: Interpretation: Atrial Fibrillation (A. fib RVR with ventricular rate of 117. Intraventricular conduction delay noted. EKG is changed from prior, however the last I have to compare to is from 2017.) Treatment and Re-Evaluation Narrative: On repeat evaluation patient resting comfortably. Heart rate now in the 80s and 90s. Test results discussed with patient and at bedside. White count is unremarkable. Hemoglobin is at baseline. Chemistry studies reveal creatinine 1.61 which is near the patient's baseline. Troponin is normal at 21 and BNP is 185. INR remains subtherapeutic at 1.4. Chest x-ray per my interpretation reveals no focal infiltrate. No significant fluid overload. EKG reveals no acute ischemia. Patient is currently increasing his Coumadin dosing and following with cardiology for repeat INR checks. With patient having 3 weeks of symptoms I will go ahead and cover him with an antibiotic. I did explain to him that I am not convinced that this is a bacterial infection and may not result in significant improvement. Discharge Plan Triage Chief Complaint: Shortness of Breath ED Provider: Rose Mary Bowser Dx/Rx/DC Orders Clinical Impression: Bronchitis Instructions: ED Bronchitis, Antibiotics (Child) Prescriptions: New azithromycin [Zithromax Z-Carmelo] 250 mg tablet See Rx Instructions PO .COMPLEX Qty: 6 0RF Rx Instructions: take 500 mg today (day 1), then 250 mg for 4 days (days 2-5) No Action cholecalciferol (vitamin D3) 1,000 unit (25 mcg) tablet 1,000 unit PO DAILY Entresto 24-26 mg tablet 1 tab PO BID Qty: 60 6RF furosemide 40 mg tablet 40 mg PO DAILY Qty: 30 4RF aibuoihr-veb-WA-lycopen-lutein 0.4-300-250 mg-mcg-mcg tablet 1 tab PO DAILY Label Comments: mineral supplement atorvastatin 20 mg tablet 20 mg PO QHS Qty: 90 3RF warfarin 1 mg tablet 1 mg PO DAILY Qty: 30 11RF Protocol: Dose Management Condition: Tuesday Dose/Route: 1 mg Instruction: 1 x 1 mg tablet Condition: Tuesday Dose/Route: 1 mg Instruction: 1 x 1 mg tablet Condition: Tuesday Dose/Route: 1 mg Instruction: 1 x 1 mg tablet Condition: Tuesday Dose/Route: 2 mg Instruction: 2 x 1 mg tablets Condition: Dose/Route: 1 mg Instruction: 1 x 1 mg tablet Condition: Tuesday Dose/Route: 1 mg Instruction: 1 x 1 mg tablet Condition: Tuesday Dose/Route: 1 mg Instruction: 1 x 1 mg tablet Protocol Text: Adjustment Start Date: Tuesday10/05/22 INR Value: 1.1 INR Date: 10/05/22 Recheck Date: 10/12/22 Primary Care Provider: Sunny Justice Referrals: Sunny Justice MD [Primary Care Provider] - 1 Week Disposition Disposition: Home, Self Care
[2022-10-09 11:05] LABS: Absolute Lymphocyte Count 1.18 X10^3/uL (0.83-4.51); Absolute Neutrophil Count 7.7 X10^3/uL (2.0-7.7); Basophil# 0.04 X10^3/uL; Basophil% 0.4 % (0-1); Eosinophil# 0.26 X10^3/uL; Eosinophils% 2.6 % (0-5); Hematocrit 46.4 % (40-54); Hemoglobin 14.8 g/dL (13.0-16.5); Lymphocyte # 1.18 X10^3/ul (0.83-4.51); Mean Corp Hgb Conc 31.9 g/dL (32-36); Mean Corpuscular Hgb 30.5 pg (27.0-32.0); Mean Corpuscular Volume 95.5 fL (80-94); Mean Platelet Vol. 10.1 fl (6.2-12.0); Monocyte# 0.68 X10^3/uL; Monocyte% 6.9 % (0-10); NRBC Flagged by Analyzer 0 % (0-5); Neutrophil # 7.65 X10^3/uL (2.7-7.7); Neutrophil % 77.8 % (47-70); Platelet Count 295 K/mm3 (150-450); RBC Distribution Width CV 13.2 % (11.6-14.6); RBC Distribution Width SD 46.7 fl (35.1-43.9); Red Blood Count 4.86 M/mm3 (4.6-6.2); White Blood Count 9.8 K/mm3 (4.4-11.0)
[2022-10-09 11:13] LABS: International Normalized Ratio 1.4; Prothrombin Time (Protime)PT. 16.7 SECONDS (11.7-14.9)
[2022-10-09 11:30] LABS: Anion Gap 4 (5-15); BNP,B-Type NATRIURETIC PEPTIDE 185.4 pg/mL (0-100); BUN 22 mg/dL (7-18); BUN/Creat Ratio 13.7 RATIO (10-20); Calcium,Total 9.7 mg/dL (8.5-10.1); Chloride 107 mmol/L (98-107); Creatinine, Serum 1.61 mg/dL (0.70-1.30); EST Glomerular Filtration Rate 43 mL/min (>60); Est Glom Filt Rate - Afr Amer 52 mL/min (>60); Estimated Creatinine Clearance 34.43 ml/min; Glucose 134 mg/dL (74-106); Potassium 4.8 mmol/L (3.5-5.1); Sodium Level 139 mmol/L (136-145); Troponin-I HS 21 pg/mL (3.0-78.0)
[2022-10-09 12:10] VITALS: BP 113/85; PULSE 93; RESP 18; O2SAT 94
== END 2022-10-09 12:10 | disposition home or self-care (01) ==
PROVIDERS: Emergency Provider Emergency Medicine; PCP Family Medicine; Visit Provider Emergency Medicine
DX: J40 Bronchitis, not specified as acute or chronic (principal); I11.0 Hypertensive heart disease with heart failure; I50.20 Unspecified systolic (congestive) heart failure; E78.5 Hyperlipidemia, unspecified; Z87.891 Personal history of nicotine dependence; R09.3 Abnormal sputum; R06.02 Shortness of breath
CPT/HCPCS: 71045; 80048; 83880; 84484; 85025; 85610; 87428; 93005; 99284; A4216

== ENCOUNTER 2023-04-06 08:51 | Outpatient (RCR) | payer MEDICARE, OTHER, SELFPAY ==
[2017-06-21 12:03] VITALS: BMI 30.9
[2023-03-15 08:50] LABS: Prothrombin Time (Protime)PT. 13.1 SECONDS (11.7-14.9)
[2023-03-22 08:44] LABS: Anion Gap 8 (5-15); BUN 36 mg/dL (7-18); BUN/Creat Ratio 22.4 RATIO (10-20); Calcium,Total 9.2 mg/dL (8.5-10.1); Chloride 106 mmol/L (98-107); Cholesterol 142 mg/dL (200); Creatinine, Serum 1.61 mg/dL (0.70-1.30); EST Glomerular Filtration Rate 43 mL/min (>60); Est Glom Filt Rate - Afr Amer 52 mL/min (>60); Glucose 105 mg/dL (74-106); High Density Lipoprotein 66 mg/dL; Potassium 4.5 mmol/L (3.5-5.1); Sodium Level 143 mmol/L (136-145); Triglycerides 104 mg/dL; Very Low Density Lipoprotein 21 mg/dL (5-40)
[2023-03-22 08:52] LABS: Prothrombin Time (Protime)PT. 13.2 SECONDS (11.7-14.9)
[2023-03-29 10:24] LABS: International Normalized Ratio 1.2; Prothrombin Time (Protime)PT. 15.5 SECONDS (11.7-14.9)
[2023-04-06 10:38] LABS: Prothrombin Time (Protime)PT. 13.6 SECONDS (11.7-14.9)
== END 2023-04-06 10:00 | disposition home or self-care (01) ==
LOC: LAB 08:51
PROVIDERS: PCP Family Medicine; Referring Provider Internal Medicine Cardiovascular Disease; Visit Provider Internal Medicine Cardiovascular Disease
DX: I48.91 Unspecified atrial fibrillation (principal); Z98.890 Other specified postprocedural states; R79.89 Other specified abnormal findings of blood chemistry; I10 Essential (primary) hypertension; Z79.01 Long term (current) use of anticoagulants
CPT/HCPCS: 36415; 80048; 80061; 85610

== ENCOUNTER 2023-05-05 08:24 | Outpatient (RCR) | payer MEDICARE, OTHER, SELFPAY ==
[2017-06-21 12:03] VITALS: BMI 30.9
[2023-04-14 09:40] LABS: International Normalized Ratio 1.1; Prothrombin Time (Protime)PT. 14.1 SECONDS (11.7-14.9)
[2023-04-21 08:48] LABS: International Normalized Ratio 1.4; Prothrombin Time (Protime)PT. 17.3 SECONDS (11.7-14.9)
[2023-04-28 09:47] LABS: International Normalized Ratio 1.1; Prothrombin Time (Protime)PT. 14.1 SECONDS (11.7-14.9)
[2023-05-05 08:57] LABS: International Normalized Ratio 1.1; Prothrombin Time (Protime)PT. 14.4 SECONDS (11.7-14.9)
== END 2023-05-05 18:00 | disposition home or self-care (01) ==
LOC: LAB 08:24
PROVIDERS: PCP Family Medicine; Referring Provider Internal Medicine Cardiovascular Disease; Visit Provider Internal Medicine Cardiovascular Disease
DX: I48.91 Unspecified atrial fibrillation (principal); Z98.890 Other specified postprocedural states; R79.89 Other specified abnormal findings of blood chemistry
CPT/HCPCS: 36415; 85610

== ENCOUNTER 2023-06-02 10:33 | Outpatient (RCR) | payer MEDICARE, OTHER, SELFPAY ==
[2017-06-21 12:03] VITALS: BMI 30.9
[2023-05-11 11:02] LABS: International Normalized Ratio 2.2; Prothrombin Time (Protime)PT. 24.7 SECONDS (11.7-14.9)
[2023-05-19 11:15] LABS: Prothrombin Time (Protime)PT. 52.8 SECONDS (11.7-14.9)
[2023-05-19 12:58] LABS: International Normalized Ratio 5.7
[2023-05-23 07:52] LABS: International Normalized Ratio 3.2; Prothrombin Time (Protime)PT. 32.8 SECONDS (11.7-14.9)
[2023-05-26 10:57] LABS: Absolute Lymphocyte Count 1.97 X10^3/uL (0.83-4.51); Absolute Neutrophil Count 4.5 X10^3/uL (2.0-7.7); Basophil# 0.06 X10^3/uL; Basophil% 0.8 % (0-1); Eosinophil# 0.18 X10^3/uL; Eosinophils% 2.5 % (0-5); Hematocrit 49.1 % (40-54); Hemoglobin 15.6 g/dL (13.0-16.5); Lymphocyte # 1.97 X10^3/ul (0.83-4.51); Lymphocyte % 27.1 % (19-41); Mean Corp Hgb Conc 31.8 g/dL (32-36); Mean Corpuscular Hgb 30.5 pg (27.0-32.0); Mean Corpuscular Volume 96.1 fL (80-94); Mean Platelet Vol. 9.8 fl (6.2-12.0); Monocyte# 0.59 X10^3/uL; Monocyte% 8.1 % (0-10); NRBC Flagged by Analyzer 0 % (0-5); Neutrophil # 4.46 X10^3/uL (2.7-7.7); Neutrophil % 61.2 % (47-70); Platelet Count 317 K/mm3 (150-450); RBC Distribution Width CV 13.3 % (11.6-14.6); RBC Distribution Width SD 47.8 fl (35.1-43.9); Red Blood Count 5.11 M/mm3 (4.6-6.2); White Blood Count 7.3 K/mm3 (4.4-11.0)
[2023-05-26 11:17] LABS: International Normalized Ratio 2.2; Prothrombin Time (Protime)PT. 24.9 SECONDS (11.7-14.9)
[2023-05-26 11:20] LABS: BNP,B-Type NATRIURETIC PEPTIDE 321.4 pg/mL (0-100)
[2023-05-26 11:21] LABS: Anion Gap 5 (5-15); BUN 31 mg/dL (7-18); BUN/Creat Ratio 16.6 RATIO (10-20); Calcium,Total 9.4 mg/dL (8.5-10.1); Chloride 108 mmol/L (98-107); Creatinine, Serum 1.87 mg/dL (0.70-1.30); EST Glomerular Filtration Rate 36 mL/min (>60); Est Glom Filt Rate - Afr Amer 44 mL/min (>60); Glucose 85 mg/dL (74-106); Potassium 4.9 mmol/L (3.5-5.1); Sodium Level 141 mmol/L (136-145)
[2023-06-02 11:20] LABS: International Normalized Ratio 1.2; Prothrombin Time (Protime)PT. 15.6 SECONDS (11.7-14.9)
== END 2023-06-06 18:00 | disposition home or self-care (01) ==
LOC: LAB 10:33
PROVIDERS: Nurse Practitioner Gerontology; PCP Family Medicine; Referring Provider Internal Medicine Cardiovascular Disease; Visit Provider Internal Medicine Cardiovascular Disease
DX: I48.91 Unspecified atrial fibrillation (principal); Z98.890 Other specified postprocedural states; Z79.01 Long term (current) use of anticoagulants; R79.89 Other specified abnormal findings of blood chemistry
CPT/HCPCS: 36415; 80048; 83880; 85025; 85610

== ENCOUNTER 2023-07-06 10:28 | Outpatient (RCR) | payer MEDICARE, OTHER, SELFPAY ==
[2017-06-21 12:03] VITALS: BMI 30.9
[2023-06-08 10:33] LABS: International Normalized Ratio 2.5; Prothrombin Time (Protime)PT. 27.6 SECONDS (11.7-14.9)
[2023-06-08 10:55] LABS: Anion Gap 2 (5-15); BUN 38 mg/dL (7-18); Calcium,Total 9.2 mg/dL (8.5-10.1); Chloride 106 mmol/L (98-107); Creatinine, Serum 1.73 mg/dL (0.70-1.30); EST Glomerular Filtration Rate 40 mL/min (>60); Est Glom Filt Rate - Afr Amer 48 mL/min (>60); Glucose 84 mg/dL (74-106); Potassium 4.5 mmol/L (3.5-5.1); Sodium Level 138 mmol/L (136-145)
[2023-06-15 08:28] LABS: International Normalized Ratio 1.7; Prothrombin Time (Protime)PT. 20.2 SECONDS (11.7-14.9)
[2023-06-23 10:59] LABS: Prothrombin Time (Protime)PT. 31.4 SECONDS (11.7-14.9)
[2023-07-06 12:45] LABS: International Normalized Ratio 1.3; Prothrombin Time (Protime)PT. 16.5 SECONDS (11.7-14.9)
== END 2023-07-06 18:00 | disposition home or self-care (01) ==
LOC: LAB 10:28
PROVIDERS: Nurse Practitioner Gerontology; PCP Family Medicine; Referring Provider Internal Medicine Cardiovascular Disease; Visit Provider Internal Medicine Cardiovascular Disease
DX: I48.0 Paroxysmal atrial fibrillation; Z79.01 Long term (current) use of anticoagulants
CPT/HCPCS: 36415; 80048; 85610

== ENCOUNTER 2023-08-04 10:56 | Outpatient (RCR) | payer MEDICARE, OTHER, SELFPAY ==
[2017-06-21 12:03] VITALS: BMI 30.9
[2023-07-14 08:34] LABS: Prothrombin Time (Protime)PT. 57.3 SECONDS (11.7-14.9)
[2023-07-14 08:41] LABS: International Normalized Ratio 6.4
[2023-07-18 11:42] LABS: Prothrombin Time (Protime)PT. 22.8 SECONDS (11.7-14.9)
[2023-07-28 10:52] LABS: Hematocrit 49.7 % (40-54); Hemoglobin 15.7 g/dL (13.0-16.5); Mean Corp Hgb Conc 31.6 g/dL (32-36); Mean Corpuscular Hgb 30.6 pg (27.0-32.0); Mean Corpuscular Volume 96.9 fL (80-94); Mean Platelet Vol. 10.5 fl (6.2-12.0); Platelet Count 277 K/mm3 (150-450); RBC Distribution Width CV 14.5 % (11.6-14.6); Red Blood Count 5.13 M/mm3 (4.6-6.2); White Blood Count 7.3 K/mm3 (4.4-11.0)
[2023-07-28 11:16] LABS: Anion Gap 3 (5-15); BUN 41 mg/dL (7-18); BUN/Creat Ratio 21.9 RATIO (10-20); Calcium,Total 9.2 mg/dL (8.5-10.1); Chloride 109 mmol/L (98-107); Creatinine, Serum 1.87 mg/dL (0.70-1.30); EST Glomerular Filtration Rate 36 mL/min (>60); Est Glom Filt Rate - Afr Amer 44 mL/min (>60); Glucose 120 mg/dL (74-106); Potassium 4.8 mmol/L (3.5-5.1); Sodium Level 140 mmol/L (136-145)
[2023-07-28 11:18] LABS: BNP,B-Type NATRIURETIC PEPTIDE 321.2 pg/mL (0-100); International Normalized Ratio 1.3; Prothrombin Time (Protime)PT. 16.6 SECONDS (11.7-14.9)
[2023-08-04 11:25] LABS: International Normalized Ratio 2.1; Prothrombin Time (Protime)PT. 23.8 SECONDS (11.7-14.9)
== END 2023-08-04 18:00 | disposition home or self-care (01) ==
LOC: LAB 10:56
PROVIDERS: Nurse Practitioner Gerontology; PCP Family Medicine; Referring Provider Internal Medicine Cardiovascular Disease; Visit Provider Internal Medicine Cardiovascular Disease
DX: Z98.890 Other specified postprocedural states; R79.89 Other specified abnormal findings of blood chemistry; R06.09 Other forms of dyspnea; Z79.01 Long term (current) use of anticoagulants; I48.0 Paroxysmal atrial fibrillation; I50.20 Unspecified systolic (congestive) heart failure
CPT/HCPCS: 36415; 80048; 83880; 85027; 85610

== ENCOUNTER 2023-09-01 10:25 | Outpatient (RCR) | payer MEDICARE, OTHER, SELFPAY ==
[2017-06-21 12:03] VITALS: BMI 30.9
[2023-08-25 11:07] LABS: International Normalized Ratio 1.2; Prothrombin Time (Protime)PT. 15.5 SECONDS (11.7-14.9)
[2023-09-01 11:19] LABS: International Normalized Ratio 1.4; Prothrombin Time (Protime)PT. 17.2 SECONDS (11.7-14.9)
== END 2023-09-01 18:00 | disposition home or self-care (01) ==
LOC: LAB 10:25
PROVIDERS: PCP Family Medicine; Referring Provider Internal Medicine Cardiovascular Disease; Visit Provider Internal Medicine Cardiovascular Disease
DX: I48.0 Paroxysmal atrial fibrillation (principal); Z79.01 Long term (current) use of anticoagulants
CPT/HCPCS: 36415; 85610

== ENCOUNTER 2023-09-27 09:23 | Outpatient (RCR) | payer MEDICARE, OTHER, SELFPAY ==
[2017-06-21 12:03] VITALS: BMI 30.9
[2023-09-07 10:21] LABS: International Normalized Ratio 1.5; Prothrombin Time (Protime)PT. 17.9 SECONDS (11.7-14.9)
[2023-09-15 10:39] LABS: International Normalized Ratio 3.1; Prothrombin Time (Protime)PT. 32.3 SECONDS (11.7-14.9)
[2023-09-27 10:07] LABS: International Normalized Ratio 1.5; Prothrombin Time (Protime)PT. 18.3 SECONDS (11.7-14.9)
== END 2023-10-06 18:00 | disposition home or self-care (01) ==
LOC: LAB 09:23
PROVIDERS: PCP Family Medicine; Referring Provider Internal Medicine Cardiovascular Disease; Visit Provider Internal Medicine Cardiovascular Disease
DX: Z79.01 Long term (current) use of anticoagulants
CPT/HCPCS: 36415; 85610

== ENCOUNTER 2023-10-13 08:31 | Emergency (ER) | payer MEDICARE, OTHER, SELFPAY ==
[2017-06-21 12:03] VITALS: BMI 30.9
[2023-10-13 08:33] VITALS: BP 144/98; PULSE 120; RESP 20; TEMP 36.2; O2SAT 97; BMI 30.1
--- NOTE | 2023-10-13 09:40 | EX.ED.DYSGE1 ---
HPI History of Present Illness Chief Complaint: Complaint Informant: patient Narrative Narrative: 88-year-old male presenting to the emergency room with hematuria. Patient states that since Tuesday he has had blood in his urine. He denies any clots. He He notes he was having urinary frequency but that has resolved. He states he has a strong stream and has not had any retention. This is never happened to him before. Recently his INR was checked at 5.7 and he has been holding it. It is down to 3. He also stopped his other medications because he did not know which ones he should stop. He believes that the bleeding has improved. He denies any known renal issues. Non-smoker. Very active individual. He is on Coumadin for atrial fibrillation. [facility] Medical History Atherosclerosis of coronary artery of [place] heart without angina pectoris BPH (benign prostatic hyperplasia) Chest tightness COVID-19 Dyspnea on exertion Elevated serum creatinine Epistaxis Essential hypertension Fatigue GI bleed HFrEF (heart failure with reduced ejection fraction) Hyperlipidemia Nasal bleeding Nasal congestion Obesity (BMI 30.0-34.9) PAF (paroxysmal atrial fibrillation) (09/03/22) Home Medications cholecalciferol (vitamin D3) 25 mcg (1,000 unit) tablet 1,000 unit PO DAILY 08/23/19 [History Last Taken Unknown] ijvnmnah-hey-hkkmi acid 0.4 mg-lycopene 300 mcg-lutein 250 mcg tablet 1 tab PO DAILY 12/20/19 [History Last Taken Unknown] atorvastatin 20 mg tablet 20 mg PO QHS #90 tabs 03/22/23 [Rx Last Taken Unknown] metoprolol succinate 25 mg tablet,extended release 24 hr 25 mg PO DAILY #90 tabs 03/22/23 [Rx Last Taken Unknown] sacubitril 24 mg-valsartan 26 mg tablet (Entresto) 1 tab PO DAILY 04/06/23 [History Last Taken Unknown] warfarin 6 mg tablet 6 mg PO DAILY #90 tabs 09/27/23 [Rx Last Taken Unknown] Allergy/AdvReac Type Severity Reaction Status Date / Time rivaroxaban [From Xarelto] AdvReac Severe Excessive Verified 10/13/23 08:32 bleeding Family History Son CAD (coronary artery disease) Surgical History H/O hand surgery History of arthroscopic knee surgery History of cardioversion (~02/27/14) History of coronary artery stent placement (06/21/17) History of herniorrhaphy History of left heart catheterization (01/17/19) History of repair of rotator cuff Social History Smoking Status: Former smoker how long ago did patient quit smokin years ago alcohol intake: current alcohol intake frequency: a few times a month Alcohol type: other substance use type: does not use caffeine: Yes Type: coffee Number of servings: 2 ROS ROS ED Constitutional Constitutional ED: Denies chills or weight loss Eyes Eyes: Denies change in vision or diplopia ENT ENT ED: Denies ear pain, rhinorrhea or sore throat Cardiovascular Cardiovascular: Denies chest pain, orthopnea, palpitations or racing heartbeat Respiratory/Chest Respiratory/Chest: Denies cough, dyspnea or orthopnea Gastrointestinal Gastrointestinal: Denies abdominal pain, diarrhea, nausea or vomiting Genitourinary Genitourinary ED: Reports hematuria and urinary frequency; Denies dysuria Musculoskeletal Musculoskeletal: Denies arthralgias or myalgias Integumentary Denies abscess or rash Neurologic Neurologic: Denies headache(s) or weakness Psychiatric Psychiatric: Denies anxiety, depression, suicidal ideation or suicidal thoughts Endocrine Endocrinology: Denies polydipsia, polyphagia or polyuria Allergic/Immunologic Allergic/Immunologic ED: Denies mouth swelling, tongue swelling or urticaria EXAM Physical Exam Const Vital Signs: 10/13/23 08:33 Temperature 97.2 F L Temperature Source Temporal Pulse Rate 120 H Respiratory Rate 20 H Blood Pressure 144/98 H Blood Pressure Mean 113 Pulse Ox 97 Oxygen Delivery Method Room Air Positive well nourished and well developed General Appearance ED: well developed HEENT Reports normocephalic, head/scalp atraumatic and moist mucous membranes Eyes PERRL and EOMs intact bilaterally Neck no lymphadenopathy, supple and no JVD Resp normal respiratory effort and clear to auscultation bilaterally Cardio regular rhythm and no murmurs Rate: tachycardic Rhythm: abnormal rhythm irregularly irregular GI normal to inspection, nondistended, normoactive bowel sounds and non-tender Palpation: soft Back/Spine no CVA tenderness and normal ROM Extremity normal to inspection General Extremety ED: Negative for edema General Extremity: Negative for edema Neuro oriented x3 and CN's II-XII intact bilaterally Sensorium / Orientation: alert Motor Exam: strength 5/5 throughout Psych mental status grossly normal Mood & Affect: Negative for depressed or tearful Skin no rashes or lesions noted and no wounds MDM MDM MDM Narrative Medical decision making narrative: Patient received a dose of his metoprolol here. I believe his tachycardia is related to not taking his metoprolol. He was advised to go ahead and restart his medications. I would have him however hold his Coumadin in the next 2 days. He is INR today is 3 I think we can let him drift down rather than fully reverse him. Hemoglobin 15.6. The urinalysis does show 1+ bacteria positive leukocyte esterase. I do not know if he had a UTI and it is improving. Will add on a culture. I will also write for some nitrofurantoin. I have asked that he have his INR checked towards the beginning of next week. Should the hematuria not resolve I recommend that he follow-up with urology. Should he develop urinary retention or worsening symptoms he should return to emergency. This was discussed with the patient his son and his who was on the phone. Lab Data Attestation: I reviewed the patient's lab results. Labs: Laboratory Results - last 24 hr 10/13/23 10/13/23 09:45 10:20 WBC 7.1 RBC 5.23 Hgb 15.6 Hct 49.2 MCV 94.1 H MCH 29.8 MCHC 31.7 L RDW Std Deviation 48.6 H RDW Coeff of Yadira 14.0 Plt Count 230 MPV 10.6 Immature Gran % (Auto) 0.300 Neut % (Auto) 65.9 Lymph % (Auto) 21.9 [place] % (Auto) 8.9 Eos % (Auto) 2.3 Baso % (Auto) 0.7 Absolute Neuts (auto) 4.7 Absolute Lymphs (auto) 1.56 Nucleated RBC % 0 Sodium 141 Potassium 4.9 Chloride 110 H Carbon Dioxide 29.0 Anion Gap 2 L BUN 32 H Creatinine 1.77 H Estim Creat Clear Calc 29.79 Est GFR (MDRD) Af Amer 47 L Est GFR (MDRD) Non-Af 39 L BUN/Creatinine Ratio 18.1 Glucose 100 Calcium 9.6 Urine Color Brown Urine Clarity Turbid Urine pH 7.0 Ur Specific Cornelius 1.025 Urine Protein 500 H Urine Glucose (UA) Normal Urine Ketones 15 H Urine Occult Blood 250 H Urine Nitrite Negative Urine Bilirubin 1 H Urine Urobilinogen Normal Ur Leukocyte Esterase 25 H Urine RBC 25-50 SEEN Urine WBC 0-5 SEEN Ur Squamous Epith Cells 0 SEEN Urine Bacteria 1+ Urine Mucus 0 SEEN Discharge Plan Triage Chief Complaint: Complaint ED Provider: Vinnie Posadas Dx/Rx/DC Orders Clinical Impression: Hematuria, Atrial fibrillation, Anticoagulant long-term use Instructions: ED Hematuria Prescriptions: No Action cholecalciferol (vitamin D3) 1,000 unit (25 mcg) tablet 1,000 unit PO DAILY qgdurbsr-pfb-GG-lycopen-lutein 0.4-300-250 mg-mcg-mcg tablet 1 tab PO DAILY Patient Comments: mineral supplement Entresto 24-26 mg tablet 1 tab PO DAILY atorvastatin 20 mg tablet 20 mg PO QHS Qty: 90 3RF metoprolol succinate 25 mg tablet extended release 24 hr 25 mg PO DAILY Qty: 90 3RF warfarin 6 mg tablet 6 mg PO DAILY Qty: 90 3RF Hold Instructions: supratherapeutic INR Protocol: Dose Management Condition: Tuesday Dose/Route: 0 mg Instruction: 0 tablets Condition: Tuesday Dose/Route: 0 mg Instruction: 0 tablets Condition: Tuesday Dose/Route: 0 mg Instruction: 0 tablets Condition: Tuesday Dose/Route: 0 mg Instruction: 0 tablets Condition: Dose/Route: 0 mg Instruction: 0 tablets Condition: Tuesday Dose/Route: 0 mg Instruction: 0 tablets Condition: Tuesday Dose/Route: 0 mg Instruction: 0 tablets Protocol Text: Adjustment Start Date: Tuesday10/11/23 INR Value: 5.7 INR Date: 10/11/23 Rx Instructions: Take one tab (6mg) daily; or as directed Primary Care Provider: Sunny Justice Referrals: Sunday Schulte MD [Med Staff - Active Staff] - As soon as possible Sunny Justice MD [Primary Care Provider] -
[2023-10-13 09:55] LABS: Absolute Lymphocyte Count 1.56 X10^3/uL (0.83-4.51); Absolute Neutrophil Count 4.7 X10^3/uL (2.0-7.7); Basophil# 0.05 X10^3/uL; Basophil% 0.7 % (0-1); Eosinophil# 0.16 X10^3/uL; Eosinophils% 2.3 % (0-5); Hematocrit 49.2 % (40-54); Hemoglobin 15.6 g/dL (13.0-16.5); Lymphocyte # 1.56 X10^3/ul (0.83-4.51); Lymphocyte % 21.9 % (19-41); Mean Corp Hgb Conc 31.7 g/dL (32-36); Mean Corpuscular Hgb 29.8 pg (27.0-32.0); Mean Corpuscular Volume 94.1 fL (80-94); Mean Platelet Vol. 10.6 fl (6.2-12.0); Monocyte# 0.63 X10^3/uL; Monocyte% 8.9 % (0-10); NRBC Flagged by Analyzer 0 % (0-5); Neutrophil # 4.69 X10^3/uL (2.7-7.7); Neutrophil % 65.9 % (47-70); Platelet Count 230 K/mm3 (150-450); RBC Distribution Width SD 48.6 fl (35.1-43.9); Red Blood Count 5.23 M/mm3 (4.6-6.2); White Blood Count 7.1 K/mm3 (4.4-11.0)
[2023-10-13 10:11] LABS: Anion Gap 2 (5-15); BUN 32 mg/dL (7-18); BUN/Creat Ratio 18.1 RATIO (10-20); Calcium,Total 9.6 mg/dL (8.5-10.1); Chloride 110 mmol/L (98-107); Creatinine, Serum 1.77 mg/dL (0.70-1.30); EST Glomerular Filtration Rate 39 mL/min (>60); Est Glom Filt Rate - Afr Amer 47 mL/min (>60); Estimated Creatinine Clearance 29.79 ml/min; Glucose 100 mg/dL (74-106); Potassium 4.9 mmol/L (3.5-5.1); Sodium Level 141 mmol/L (136-145)
[2023-10-13] MEDS: Metoprolol(XL)Succ 25 MG Tablet PO (10:19)
[2023-10-13 10:23] LABS: Mucous, Urine 0 SEEN /hpf (<or=2+); Squamous Epithelial Cells - UA 0 SEEN /hpf (0-5)
[2023-10-13 10:30] LABS: Color, Urine Brown (Yellow); Glucose, Dipstick Normal (Normal); Ketone-Dipstick 15 mg/dl (Negative); Leukocyte Esterase-Dipstick 25 /ul (Negative); Nitrite-Dipstick Negative (Negative); Occult Blood-Urine 250 /ul (Negative); Protein-Dipstick 500 mg/dl (Negative); Specific Gravity, Urine 1.025 (1.002-1.030); Urine Clarity Turbid (Clear); Urine Urobilinogen Normal (Normal)
[2023-10-13 10:31] LABS: Urine Bilirubin Dipstick 1 mg/dL (Negative)
[2023-10-13 10:39] LABS: Bacteria 1+ /hpf (None Seen); Red Blood Cells-Urine 25-50 SEEN /hpf (0-5); White Blood Cells 0-5 SEEN /hpf (0-5)
== END 2023-10-13 11:22 | disposition home or self-care (01) ==
PROVIDERS: Emergency Provider Emergency Medicine; PCP Family Medicine; Referring Provider Emergency Medicine; Visit Provider Emergency Medicine
DX: R31.9 Hematuria, unspecified (principal); I11.0 Hypertensive heart disease with heart failure; I50.9 Heart failure, unspecified; I48.0 Paroxysmal atrial fibrillation; I25.10 Atherosclerotic heart disease of native coronary artery without angina pectoris; E78.5 Hyperlipidemia, unspecified; Z79.01 Long term (current) use of anticoagulants; Z87.891 Personal history of nicotine dependence; Z95.5 Presence of coronary angioplasty implant and graft
CPT/HCPCS: 36415; 80048; 81001; 85025; 87086; 99282

== ENCOUNTER 2023-11-02 09:06 | Outpatient (RCR) | payer MEDICARE, OTHER, SELFPAY ==
[2017-06-21 12:03] VITALS: BMI 30.9
[2023-10-11 08:16] LABS: International Normalized Ratio 5.7; Prothrombin Time (Protime)PT. 52.5 SECONDS (11.7-14.9)
[2023-10-13 09:08] LABS: Prothrombin Time (Protime)PT. 31.8 SECONDS (11.7-14.9)
[2023-10-18 08:57] LABS: Prothrombin Time (Protime)PT. 13.6 SECONDS (11.7-14.9)
[2023-10-25 08:58] LABS: International Normalized Ratio 1.1; Prothrombin Time (Protime)PT. 14.5 SECONDS (11.7-14.9)
[2023-11-02 09:55] LABS: Prothrombin Time (Protime)PT. 22.9 SECONDS (11.7-14.9)
== END 2023-11-06 18:00 | disposition home or self-care (01) ==
LOC: LAB 09:06
PROVIDERS: PCP Family Medicine; Referring Provider Internal Medicine Cardiovascular Disease; Visit Provider Internal Medicine Cardiovascular Disease
DX: Z79.01 Long term (current) use of anticoagulants (principal); I48.0 Paroxysmal atrial fibrillation
CPT/HCPCS: 36415; 85610

== ENCOUNTER 2023-12-06 08:04 | Outpatient (RCR) | payer MEDICARE, OTHER, SELFPAY ==
[2017-06-21 12:03] VITALS: BMI 30.9
[2023-11-08 10:54] LABS: International Normalized Ratio 2.1; Prothrombin Time (Protime)PT. 23.6 SECONDS (11.7-14.9)
[2023-11-15 09:50] LABS: Prothrombin Time (Protime)PT. 31.6 SECONDS (11.7-14.9)
[2023-11-22 10:27] LABS: International Normalized Ratio 2.9; Prothrombin Time (Protime)PT. 31.1 SECONDS (11.7-14.9)
[2023-12-06 10:18] LABS: Prothrombin Time (Protime)PT. 42.3 SECONDS (11.7-14.9)
[2023-12-06 13:05] LABS: International Normalized Ratio 4.3
== END 2023-12-07 18:00 | disposition home or self-care (01) ==
LOC: LAB 08:04
PROVIDERS: PCP Family Medicine; Referring Provider Internal Medicine Cardiovascular Disease; Visit Provider Internal Medicine Cardiovascular Disease
DX: I48.0 Paroxysmal atrial fibrillation (principal); Z79.01 Long term (current) use of anticoagulants
CPT/HCPCS: 36415; 85610

== ENCOUNTER 2024-01-05 08:25 | Outpatient (RCR) | payer MEDICARE, OTHER, SELFPAY ==
[2017-06-21 12:03] VITALS: BMI 30.9
[2023-12-22 08:33] LABS: International Normalized Ratio 2.9; Prothrombin Time (Protime)PT. 31.1 SECONDS (11.7-14.9)
[2024-01-05 10:11] LABS: International Normalized Ratio 2.3; Prothrombin Time (Protime)PT. 25.4 SECONDS (11.7-14.9)
== END 2024-01-05 18:00 | disposition home or self-care (01) ==
LOC: LAB 08:25
PROVIDERS: PCP Family Medicine; Referring Provider Internal Medicine Cardiovascular Disease; Visit Provider Internal Medicine Cardiovascular Disease
DX: I48.0 Paroxysmal atrial fibrillation (principal); Z79.01 Long term (current) use of anticoagulants
CPT/HCPCS: 36415; 85610

== ENCOUNTER 2024-01-19 06:43 | Outpatient (RCR) | payer MEDICARE, OTHER, SELFPAY ==
[2017-06-21 12:03] VITALS: BMI 30.9
[2024-01-19 07:39] LABS: International Normalized Ratio 2.6; Prothrombin Time (Protime)PT. 27.6 SECONDS (11.7-14.9)
== END 2024-02-05 01:27 | disposition home or self-care (01) ==
LOC: LAB 06:43
PROVIDERS: PCP Family Medicine; Referring Provider Internal Medicine Cardiovascular Disease; Visit Provider Internal Medicine Cardiovascular Disease
DX: I48.0 Paroxysmal atrial fibrillation (principal); Z79.01 Long term (current) use of anticoagulants
CPT/HCPCS: 36415; 85610

== ENCOUNTER 2024-02-08 08:13 | Outpatient (RCR) | payer MEDICARE, OTHER, SELFPAY ==
[2017-06-21 12:03] VITALS: BMI 30.9
[2024-02-08 09:55] LABS: International Normalized Ratio 2.8; Prothrombin Time (Protime)PT. 29.2 SECONDS (11.7-14.9)
== END 2024-03-06 23:53 | disposition home or self-care (01) ==
LOC: LAB 08:13
PROVIDERS: PCP Family Medicine; Referring Provider Internal Medicine Cardiovascular Disease; Visit Provider Internal Medicine Cardiovascular Disease
DX: I48.0 Paroxysmal atrial fibrillation (principal); Z79.01 Long term (current) use of anticoagulants
CPT/HCPCS: 36415; 85610

== ENCOUNTER 2024-04-05 07:31 | Outpatient (RCR) | payer MEDICARE, OTHER, SELFPAY ==
[2017-06-21 12:03] VITALS: BMI 30.9
[2024-03-07 09:52] LABS: International Normalized Ratio 3.4
[2024-03-14 09:54] LABS: International Normalized Ratio 2.6; Prothrombin Time (Protime)PT. 27.8 SECONDS (11.7-14.9)
[2024-03-14 10:31] LABS: Absolute Lymphocyte Count 1.27 X10^3/uL (0.83-4.51); Absolute Neutrophil Count 5.2 X10^3/uL (2.0-7.7); Basophil# 0.04 X10^3/uL; Basophil% 0.5 % (0-1); Eosinophil# 0.09 X10^3/uL; Eosinophils% 1.2 % (0-5); Hematocrit 49.4 % (40-54); Hemoglobin 15.6 g/dL (13.0-16.5); Lymphocyte # 1.27 X10^3/ul (0.83-4.51); Lymphocyte % 17.3 % (19-41); Mean Corp Hgb Conc 31.6 g/dL (32-36); Mean Corpuscular Hgb 30.4 pg (27.0-32.0); Mean Corpuscular Volume 96.3 fL (80-94); Mean Platelet Vol. 10.7 fl (6.2-12.0); Monocyte% 9.6 % (0-10); NRBC Flagged by Analyzer 0 % (0-5); Neutrophil % 71.1 % (47-70); Platelet Count 275 K/mm3 (150-450); RBC Distribution Width CV 14.6 % (11.6-14.6); RBC Distribution Width SD 51.9 fl (35.1-43.9); Red Blood Count 5.13 M/mm3 (4.6-6.2); White Blood Count 7.3 K/mm3 (4.4-11.0)
[2024-03-14 11:06] LABS: ALB/GLOB Ratio 1.1 RATIO (0.9-2.4); AST(SGOT) 17 U/L (15-37); Alanine Aminotransfer ALT/SGPT 14 U/L (16-61); Albumin, Serum 3.5 g/dL (3.2-5.0); Alkaline Phosphatase 71 U/L (45-117); Anion Gap 5 (5-15); BUN 43 mg/dL (7-18); BUN/Creat Ratio 19.1 RATIO (10-20); Calcium,Total 9.8 mg/dL (8.5-10.1); Chloride 109 mmol/L (98-107); Creatinine, Serum 2.25 mg/dL (0.70-1.30); EST Glomerular Filtration Rate 29 mL/min (>60); Est Glom Filt Rate - Afr Amer 36 mL/min (>60); Globulin 3.2 g/dL (2.2-4.2); Glucose 114 mg/dL (74-106); Potassium 4.7 mmol/L (3.5-5.1); Protein, Total 6.7 g/dL (6.4-8.2); Sodium Level 141 mmol/L (136-145)
[2024-03-14 11:11] LABS: BNP,B-Type NATRIURETIC PEPTIDE 1012.3 pg/mL (0-100)
[2024-03-22 09:36] LABS: International Normalized Ratio 1.4; Prothrombin Time (Protime)PT. 16.8 SECONDS (11.7-14.9)
[2024-03-22 09:40] LABS: Anion Gap 5 (5-15); BUN 44 mg/dL (7-18); BUN/Creat Ratio 20.9 RATIO (10-20); Calcium,Total 9.7 mg/dL (8.5-10.1); Chloride 102 mmol/L (98-107); Creatinine, Serum 2.11 mg/dL (0.70-1.30); EST Glomerular Filtration Rate 32 mL/min (>60); Est Glom Filt Rate - Afr Amer 38 mL/min (>60); Glucose 108 mg/dL (74-106); Potassium 4.3 mmol/L (3.5-5.1); Sodium Level 138 mmol/L (136-145)
[2024-04-05 08:22] LABS: International Normalized Ratio 1.8; Prothrombin Time (Protime)PT. 20.5 SECONDS (11.7-14.9)
== END 2024-04-06 23:59 ==
LOC: PAVLAB 07:31
PROVIDERS: Physician Assistant Medical; PCP Family Medicine; Referring Provider Internal Medicine Cardiovascular Disease; Visit Provider Internal Medicine Cardiovascular Disease
DX: I48.0 Paroxysmal atrial fibrillation (principal); Z79.01 Long term (current) use of anticoagulants; I50.20 Unspecified systolic (congestive) heart failure; R06.02 Shortness of breath; R06.09 Other forms of dyspnea; I25.10 Atherosclerotic heart disease of native coronary artery without angina pectoris; Z51.81 Encounter for therapeutic drug level monitoring
CPT/HCPCS: 36415; 80048; 80053; 83880; 85025; 85610

== ENCOUNTER 2024-04-05 08:18 | Observation (INO) | payer MEDICARE, OTHER, SELFPAY ==
[2017-06-21 12:03] VITALS: BMI 30.9
[2024-04-05] VITALS (12 sets, daily range): BP systolic 116–150; BP diastolic 83–108; PULSE 74–104; RESP 16–21; TEMP 36.2–36.5; O2SAT 89–97; BMI 29.5
--- NOTE | 2024-04-05 08:45 | EKG12_ITS ---
Test Reason : CHEST PAIN Blood Pressure : / mmHG Vent. Rate : 099 BPM Atrial Rate : 000 BPM P-R Int : 000 ms QRS Dur : 138 ms QT Int : 368 ms P-R-T Axes : 000 -68 101 degrees QTc Int : 472 ms Atrial fibrillation Left axis deviation Non-specific intra-ventricular conduction block Cannot rule out Septal infarct , age undetermined Abnormal ECG Confirmed by Sukumar Wills ([id number]), food expeditor JOCELYN LIVINGSTON ([id number]) on 04/09/2024 6:57:49 AM Referred By: YEIMI LUEVANO Confirmed By:Sukumar Wills
--- NOTE | 2024-04-05 08:55 | RAD_ITS ---
STUDY: X-RAY CHEST REASON FOR EXAM: Male, 89 years old. Chest pain TECHNIQUE: PA and lateral views of the chest. COMPARISON: Comparison is made with prior study dated October 09, 2022. FINDINGS: EKG electrodes are seen. Hyperinflation. There is evidence of a pleural parenchymal changes at the left lung base as compared to prior study suggestive of possible left basilar infiltrate and small effusion. Findings suggest with scarring at the right lung base. There is borderline cardiomegaly. Normal mediastinum and chong. Normal visualized pulmonary arteries. There is atherosclerotic calcification of the aortic arch with tortuosity. There are diffuse degenerative changes of the visualized thoracic spine. There is degenerative osteoarthritis of the bilateral shoulders. There is no demonstrated abnormality of the visualized soft tissue structures of the upper abdomen. RAD/Chest PA and Lateral IMPRESSION: Pleural-parenchymal changes are seen at the left lung base. This is new as compared to prior study. Left lower lobe infiltrate with small effusion should BE ruled out. Findings suggestive of scarring at the right lung base. Electronically Signed: Javy Amaya MD at 9:08 EDT ,
[2024-04-05 08:56] LABS: Absolute Lymphocyte Count 0.96 X10^3/uL (0.83-4.51); Absolute Neutrophil Count 6.8 X10^3/uL (2.0-7.7); Basophil# 0.04 X10^3/uL; Basophil% 0.5 % (0-1); Eosinophil# 0.07 X10^3/uL; Eosinophils% 0.8 % (0-5); Hematocrit 50.6 % (40-54); Hemoglobin 15.9 g/dL (13.0-16.5); Lymphocyte # 0.96 X10^3/ul (0.83-4.51); Lymphocyte % 11.3 % (19-41); Mean Corp Hgb Conc 31.4 g/dL (32-36); Mean Corpuscular Hgb 30.5 pg (27.0-32.0); Mean Corpuscular Volume 96.9 fL (80-94); Mean Platelet Vol. 10.7 fl (6.2-12.0); Monocyte# 0.63 X10^3/uL; Monocyte% 7.4 % (0-10); NRBC Flagged by Analyzer 0 % (0-5); Neutrophil # 6.77 X10^3/uL (2.7-7.7); Neutrophil % 79.5 % (47-70); Platelet Count 226 K/mm3 (150-450); RBC Distribution Width CV 14.1 % (11.6-14.6); RBC Distribution Width SD 50.3 fl (35.1-43.9); Red Blood Count 5.22 M/mm3 (4.6-6.2); White Blood Count 8.5 K/mm3 (4.4-11.0)
--- NOTE | 2024-04-05 08:56 | ED.VIS.CHEST ---
HPI History of Present Illness Chief Complaint: Chest Pain Informant: patient Narrative Narrative: Patient is an 89-year-old male with history of proximal atrial fibrillation, heart failure with reduced ejection fraction, chronic Eliquis therapy and coronary artery disease with stent placement in 2017 presenting with episode of chest pain and shortness of breath. Patient was active driving to the hospital for routine blood work when he was exiting his car when he suddenly states he felt terrible. He states he felt he might pass out, felt short of breath and had chest discomfort. [place] like his heart was racing. Staff at the hospital sent him to the emergency room for further evaluation. He did have some associated nausea at this time. He currently states his symptoms aside and he feels back to normal. He states he was in normal state of health when he woke up this morning. He states he felt fine yesterday. Denies any medicine occasion changes. States has been compliant with his medications. Denies any associated vomiting, change in bowel movements, black or blood in his stool or abdominal pain. Denies any swelling of his legs or recent cough. No other complaints or concerns reported at this time. [facility] Medical History Epistaxis Nasal bleeding Fatigue GI bleed HFrEF (heart failure with reduced ejection fraction) Elevated serum creatinine Chest tightness Dyspnea on exertion COVID-19 Nasal congestion Essential hypertension BPH (benign prostatic hyperplasia) Atherosclerosis of coronary artery of [place] heart without angina pectoris PAF (paroxysmal atrial fibrillation) (09/03/22) Obesity (BMI 30.0-34.9) Hyperlipidemia Home Medications ?Medication ?Instructions ?Recorded ?Last Taken ?Type byzwoifi-zzf-uxncr acid 0.4 1 tab PO DAILY 12/20/19 04/04/24 06:30 History mg-lycopene 300 mcg-lutein 250 mcg tablet metoprolol succinate 25 mg 25 mg PO DAILY 11/24/23 04/04/24 06:30 History tablet,extended release 24 hr sacubitril 24 mg-valsartan 26 mg 1 tab PO BID #180 tabs 12/02/23 04/04/24 06:30 Rx tablet (Entresto) furosemide 40 mg tablet 40 mg PO .COMPLEX #7 tabs 03/14/24 04/04/24 06:30 Rx warfarin 1 mg tablet 1 mg PO .COMPLEX #45 tabs 03/14/24 04/01/24 06:30 Rx warfarin 2 mg tablet 2 mg PO .COMPLEX 03/14/24 04/04/24 06:30 History Allergy/AdvReac Type Severity Reaction Status Date / Time rivaroxaban (From Xarelto) AdvReac Severe Excessive Verified 04/05/24 08:23 bleeding Family History Son CAD (coronary artery disease) Surgical History History of left heart catheterization (01/17/19) H/O hand surgery History of arthroscopic knee surgery History of herniorrhaphy History of repair of rotator cuff History of cardioversion (~02/27/14) History of coronary artery stent placement (06/21/17) Social History (Updated 04/05/24 @ 12:43 by Jennifer Rogers) Smoking Status: Former smoker how long ago did patient quit smokin years ago alcohol intake: current alcohol intake frequency: a few times a month Alcohol type: other substance use type: does not use caffeine: Yes Type: coffee Number of servings: 2 ROS ROS ED Constitutional Constitutional ED: Denies chills or fever(s) Eyes Eyes: Denies change in vision Cardiovascular Cardiovascular: Reports as per HPI, chest pain and racing heartbeat Respiratory/Chest Respiratory/Chest: Reports dyspnea; Denies cough or sputum Gastrointestinal Gastrointestinal: Reports nausea; Denies abdominal pain, diarrhea, melena or vomiting Musculoskeletal Musculoskeletal: Denies arthralgias or myalgias Integumentary Denies rash Neurologic Neurologic: Reports weakness; Denies headache(s) Hematologic/Lymphatic Hematologic/Lymphatic: Reports easy bleeding and easy bruising EXAM Physical Exam Const Vital Signs: 04/05/24 08:19 04/05/24 09:09 04/05/24 09:10 Temperature 97.2 F L Temperature Source Temporal Pulse Rate 104 H Respiratory Rate 16 Respiratory Effort Normal Non-Labored Blood Pressure 120/108 H Blood Pressure Mean 112 Pulse Ox 94 96 Oxygen Delivery Method Room Air Room Air 04/05/24 09:25 04/05/24 10:04 04/05/24 11:00 Temperature 97.6 F L Temperature Source Oral Pulse Rate 82 74 75 Respiratory Rate 16 18 20 H Respiratory Effort Blood Pressure 130/85 H 118/98 H 128/93 H Blood Pressure Mean 100 104 104 Pulse Ox 96 97 94 Oxygen Delivery Method Room Air Room Air Room Air 04/05/24 11:52 Temperature 97.6 F L Temperature Source Pulse Rate 80 Respiratory Rate 21 H Respiratory Effort Blood Pressure 132/94 H Blood Pressure Mean 106 Pulse Ox 97 Oxygen Delivery Method Positive well nourished and well developed General Appearance ED: well developed and NAD HEENT Reports moist mucous membranes Eyes PERRL Neck supple and no JVD Chest Wall inspection of chest normal and palpation of chest normal Resp normal respiratory effort and clear to auscultation bilaterally Resp Narrative: No crackles appreciated Auscultation: Negative for diminished lung sounds Cardio no murmurs Rate: tachycardic Rhythm: abnormal rhythm irregularly irregular Peripheral Pulses: radial pulses present GI soft to palpation and non-tender Extremity normal to inspection General Extremety ED: Negative for edema General Extremity: Negative for edema Neuro oriented x3 Sensorium / Orientation: awake and alert Motor Exam: Negative for general weakness Psych mental status grossly normal Skin no rashes or lesions noted MDM MDM MDM Narrative Medical decision making narrative: Patient is evaluated for transient episode of lightheadedness, chest discomfort and shortness of breath. Symptoms are resolved. Vital signs significant for borderline tachycardia in the emergency room. His symptoms have significantly improved at this point. Cardiac workup will be obtained. Will monitor patient's heart rate and if it does not improve on its own we will consider giving beta-christine in the emergency room. Heart rate does improve in the emergency room. EKG does not show any acute ischemic changes however patient's initial high sensitive troponin is elevated at 104. Repeat is a continued elevation at 100 but not uptrending. Patient has a stable CKD and his INR is slightly subtherapeutic at 1.8. This is discussed with main physician. Patient will be admitted for further cardiac monitoring given this event that occurred prior to arrival with an elevated troponin. The case is also discussed with cardiology on-call given his elevation of his troponin with Dr. Roblero. No acute intervention at this time. Patient is given aspirin in the emergency room. His heart rate does improve in the ER without any intervention. 2 view chest x-ray viewed by myself as well as radiology shows chronic changes and scarring and possible infiltrate with effusion. Physical exam and HPI is not consistent with acute infection and patient does not have any fever, report of progressive respiratory symptoms or leukocytosis. Will defer treatment for pneumonia at this time. This is discussed with admitting physician. Lab Data Attestation: I reviewed the patient's lab results. Labs: Laboratory Results - last 24 hr 04/05/24 04/05/24 04/05/24 08:40 08:48 10:43 WBC 8.5 RBC 5.22 Hgb 15.9 Hct 50.6 MCV 96.9 H MCH 30.5 MCHC 31.4 L RDW Std Deviation 50.3 H RDW Coeff of Yadira 14.1 Plt Count 226 MPV 10.7 Immature Gran % (Auto) 0.500 Neut % (Auto) 79.5 H Lymph % (Auto) 11.3 L [place] % (Auto) 7.4 Eos % (Auto) 0.8 Baso % (Auto) 0.5 Absolute Neuts (auto) 6.8 Absolute Lymphs (auto) 0.96 Nucleated RBC % 0 PT 20.3 H INR 1.8 APTT 40.8 H D-Dimer Quant (PE/DVT) 0.72 H* Sodium 140 Potassium 4.7 Chloride 108 H Carbon Dioxide 26.0 Anion Gap 6 BUN 34 H Creatinine 1.83 H Est GFR (MDRD) Af Amer 45 L Est GFR (MDRD) Non-Af 37 L BUN/Creatinine Ratio 18.6 Glucose 113 H Calcium 9.7 Magnesium 1.9 Troponin I High Sens 104 H 100 H B-Natriuretic Peptide 1945.1 H Radiography Chest X-Ray - ED: 2 View, Read by ED Physician, Read by Radiologist and Chronic Changes Diagnostic Testing: Clinical Impression(s) from Imaging Studies Chest X-Ray 04/05/24 08:55 IMPRESSION: Pleural-parenchymal changes are seen at the left lung base. This is new as compared to prior study. Left lower lobe infiltrate with small effusion should BE ruled out. Findings suggestive of scarring at the right lung base. Electronically Signed: Javy Amaya MD at 9:08 EDT , Rhythm Strip Rhythm Strip: A-fib Rate: 99 Ectopy: None EKG Initial EKG: Attestation: I personally reviewed and interpreted this EKG as follows: Interpretation: Atrial Fibrillation Comments: Atrial fibrillation at a rate of 99 bpm Left axis deviation Nonspecific interventricular conduction delay present Normal ST segments No change compared to prior EKG Differential Diagnosis Chest pain/SOB: ACS, pneumonia Reason(s) pneumonia less likely: Positive for no elevation in WBC count, no noted fever and symptoms not consistent with acute infection, aortic dissection Reason(s) Aortic dissection less likely:: Positive for normal vascular exam, normal neurological exam, no widened mediastinum on CXR, no pain to back and blood pressure appropriate in ED, CHF Reason(s) CHF less likely: Positive for no significant peripheral edema and no evidence of fluid overload on CXR and COPD Reason(s) COPD less likely: Positive for no significant wheezing on exam, no tachypnea, no conversational dyspnea and normal air movement noted on auscultation on lungs Management Discussion w/another healthcare provider: Hospitalist and Allied Health Professional Discharge Plan Dx/Rx/DC Orders Clinical Impression: Shortness of breath, Chest pain, Elevated troponin, Subtherapeutic international normalized ratio (INR) Disposition Disposition: Acute Care Hospital [facility] Discharge Date/Time: 04/05/24 12:27
[2024-04-05 09:15] LABS: Anion Gap 6 (5-15); BUN 34 mg/dL (7-18); BUN/Creat Ratio 18.6 RATIO (10-20); Calcium,Total 9.7 mg/dL (8.5-10.1); Chloride 108 mmol/L (98-107); Creatinine, Serum 1.83 mg/dL (0.70-1.30); EST Glomerular Filtration Rate 37 mL/min (>60); Est Glom Filt Rate - Afr Amer 45 mL/min (>60); Glucose 113 mg/dL (74-106); Magnesium 1.9 mg/dL (1.6-2.6); Potassium 4.7 mmol/L (3.5-5.1); Sodium Level 140 mmol/L (136-145); Troponin-I HS (w/2H Reflex) 104 pg/mL (3.0-78.0)
[2024-04-05 09:57] LABS: International Normalized Ratio 1.8; Prothrombin Time (Protime)PT. 20.3 SECONDS (11.7-14.9)
[2024-04-05 09:58] LABS: Partial Thromboplast Time 40.8 Seconds (24.1-36.2)
[2024-04-05] MEDS: Aspirin 81 MG TAB.CHEW 324 MG PO (10:25)
[2024-04-05 10:53] LABS: Reflex Troponin-HS? (from REC) Y
[2024-04-05 11:09] LABS: Troponin-I HS 100 pg/mL (3.0-78.0)
--- NOTE | 2024-04-05 12:31 | ECHOCS_ITS ---
Reason For Study: Dyspnea/SOB Procedure This was a 2D Doppler, Color Flow transthoracic echocardiogram. Exam performed portable in patient room. Left Ventricle Moderately dilated left ventricle. The estimated ejection fraction is 5-10% %. Right Ventricle Mildly dilated right ventricle. Mild global right ventricular systolic dysfunction. Atria The left atrium is moderately enlarged. The right atrium is moderately enlarged. Mitral Valve The mitral valve is structurally normal. No prolapse or stenosis seen. Moderate (2+) mitral valve insufficiency. Tricuspid Valve Normal tricuspid valve. Moderate (2+) tricuspid valve insufficiency. Aortic Valve Aortic sclerosis, no stenosis. Trivial aortic valve insufficiency. Pulmonic Valve The pulmonic valve is not well visualized. Great Vessels Normal aortic root. Pericardium/Pleural No pericardial effusion. Medication Diluted definity 2ml given slow IV push to enhance endocardial definition. MMode/2D Measurements & Calculations LVIDd: 5.3 cm IVSd: 1.1 cm LVOT diam: 2.1 cm LVIDs: 4.7 cm LVPWd: 1.3 cm RVDd: 4.1 cm FS: 11.4 % LVOT area: 3.5 cm2 Ao root diam: 3.7 cm LAV(MOD-bp): 121.9 ml LVAd ap4: 37.8 cm2 LA dimension: 5.6 cm LAV(MOD-bp) Indexed: 57.8 ml/m2 LVLd ap4: 8.7 cm LAV(MOD-sp2): 131.1 ml EDV(MOD-sp4): 132.2 ml LAV(MOD-sp4): 112.4 ml EDV(sp4-el): 139.9 ml LVAs ap4: 35.1 cm2 LVLs ap4: 8.3 cm ESV(MOD-sp4): 120.5 ml ESV(sp4-el): 126.6 ml EF(MOD-sp4): 8.8 % EF(sp4-el): 9.5 % SV(MOD-sp4): 11.6 ml SV(sp4-el): 13.2 ml Aortic Valve Planimetry: 0.97 cm2 LA A4 area: 30.6 cm2 RA A4 area: 30.6 cm2 Doppler Measurements & Calculations MV E max ras: 99.9 cm/sec MV V2 max: 114.6 cm/sec Ao V2 max: 196.7 cm/sec MV max P.3 mmHg Ao max P.5 mmHg MV V2 mean: 54.3 cm/sec Ao V2 mean: 127.7 cm/sec MV mean P.6 mmHg Ao mean P.7 mmHg MV V2 VTI: 18.8 cm Ao V2 VTI: 30.7 cm MVA(VTI): 1.6 cm2 AV (velocity ratio): 0.27 LEX(I,D): 0.95 cm2 LEX(V,D): 0.91 cm2 AI max ras: 265.3 cm/sec LV V1 max: 50.8 cm/sec MR max ras: 458.8 cm/sec AI max P.2 mmHg LV V1 max P.0 mmHg MR max P.3 mmHg LV V1 mean P.57 mmHg MR mean ras: 350.4 cm/sec AI dec slope: 265.2 cm/sec2 LV V1 mean: 35.0 cm/sec MR mean P.0 mmHg AI P1/2t: 293.0 msec LV V1 VTI: 8.3 cm MR VTI: 136.7 cm SV(LVOT): 29.2 ml PA V2 max: 52.3 cm/sec TR max ras: 384.0 cm/sec TR max P.0 mmHg ECHO/Echo Complete W/ Contrast Interpretation Summary The estimated ejection fraction is 5-10% %. Severe LV systolic dysfunction Moderate biatrial enlargement Moderate MR Moderate TR Trivial AI In comparison to previous echo September 13, 2022 EF was 40% Remarkable EF reduction with severe LV systolic dysfunction. Contrast echo used/Definity. Ordering Physician: Fidencio Padilla Referring Physician: MD Lewis Stanley MD Performed By: Fred Santo and Student
[2024-04-05] MEDS: Heparin Injection (Vial) 5,000 UNIT/ML VIAL 5000 UNIT SC ×2 (13:21→22:09)
[2024-04-05] MEDS: Furosemide 20 MG/2 ML VIAL IV ×2 (13:21→18:33)
[2024-04-05] MEDS: Potassium Chloride Oral Tablet 20 MEQ PO (13:21)
[2024-04-05] MEDS: 0.9% Saline Lock 10 ML Syringe IV ×2 (13:21→18:33)
--- NOTE | 2024-04-05 13:23 | EKG12_ITS ---
Test Reason : Blood Pressure : / mmHG Vent. Rate : 088 BPM Atrial Rate : 000 BPM P-R Int : 000 ms QRS Dur : 138 ms QT Int : 384 ms P-R-T Axes : 000 -13 083 degrees QTc Int : 464 ms Atrial fibrillation Non-specific intra-ventricular conduction block Cannot rule out Septal infarct , age undetermined Abnormal ECG When compared with ECG of 05-APR-2024 08:23, MANUAL COMPARISON REQUIRED, DATA IS UNCONFIRMED Confirmed by Sukumar Wills ([id number]), editor continuity and script JOCELYN LIVINGSTON ([id number]) on 04/09/2024 6:57:31 AM Referred By: ANDREW Confirmed By:Sukumar Wills
[2024-04-05 13:35] LABS: BNP,B-Type NATRIURETIC PEPTIDE 1945.1 pg/mL (0-100)
[2024-04-05 13:51] LABS: D-Dimer Quantitative (DVT/PE) 0.72 FEU/ug/m (0.27-0.49)
--- NOTE | 2024-04-05 14:04 | PCM.HP.STD ---
HPI - General General Date of Admission: 04/05/24 Date of Service: 04/05/24 Chief Complaint: Chest pain and shortness of breath HPI Narrative MOLLY ANDERSEN, is a 89 M who presents to the emergency room at [facility] with complaints of sudden chest pain along with shortness of breath which occurred today, patient is a poor informant, he stated the episode lasted about 10 minutes, by the time he got to the emergency room his chest pain had disappeared and he only had some shortness of breath. He was not able to fully describe his chest discomfort. Evaluation in the ER included an EKG which showed the patient to be in atrial fibrillation with a left bundle branch block pattern-this was the patient's normal rhythm, patient had a troponin which was minimally elevated, repeat troponin was slightly less elevated. CBC was unremarkable, chemistry profile was remarkable for creatinine of 1.83 and a BUN of 34. Patient's chest x-ray showed pleural parenchymal changes at the left lung base, there is also noted to be a left lower lobe infiltrate with a small effusion, there is also suggestion of scarring at the right lung base. Patient was placed into observation status on PCU, serial cardiac enzymes will be obtained, patient will be seen in consultation by cardiology, if enzymes do not significantly elevate, he will undergo a pharmacological stress test tomorrow. Echocardiogram was ordered. I have also elected to place the patient on IV Lasix due to concerns of possible heart failure. [facility] Medical History Epistaxis Nasal bleeding Fatigue GI bleed HFrEF (heart failure with reduced ejection fraction) Elevated serum creatinine Chest tightness Dyspnea on exertion COVID-19 Nasal congestion Essential hypertension BPH (benign prostatic hyperplasia) Atherosclerosis of coronary artery of [place] heart without angina pectoris PAF (paroxysmal atrial fibrillation) (09/03/22) Obesity (BMI 30.0-34.9) Hyperlipidemia Home Medications ?Medication ?Instructions ?Recorded ?Last Taken ?Type fpbbjwnv-nfp-zvzgn acid 0.4 1 tab PO DAILY 12/20/19 04/04/24 06:30 History mg-lycopene 300 mcg-lutein 250 mcg tablet metoprolol succinate 25 mg 25 mg PO DAILY 11/24/23 04/04/24 06:30 History tablet,extended release 24 hr sacubitril 24 mg-valsartan 26 mg 1 tab PO BID #180 tabs 12/02/23 04/04/24 06:30 Rx tablet (Entresto) furosemide 40 mg tablet 40 mg PO .COMPLEX #7 tabs 03/14/24 04/04/24 06:30 Rx warfarin 1 mg tablet 1 mg PO .COMPLEX #45 tabs 03/14/24 04/01/24 06:30 Rx warfarin 2 mg tablet 2 mg PO .COMPLEX 03/14/24 04/04/24 06:30 History Allergy/AdvReac Type Severity Reaction Status Date / Time rivaroxaban (From Xarelto) AdvReac Severe Excessive Verified 04/05/24 08:23 bleeding Family History Son CAD (coronary artery disease) Surgical History History of left heart catheterization (01/17/19) H/O hand surgery History of arthroscopic knee surgery History of herniorrhaphy History of repair of rotator cuff History of cardioversion (~02/27/14) History of coronary artery stent placement (06/21/17) Social History (Updated 04/05/24 @ 12:43 by Jennifer Rogers) Smoking Status: Former smoker how long ago did patient quit smokin years ago alcohol intake: current alcohol intake frequency: a few times a month Alcohol type: other substance use type: does not use caffeine: Yes Type: coffee Number of servings: 2 ROS Constitutional Constitutional: Denies anorexia, change in weight, fever(s), night sweats or weakness Eyes Eyes: Denies blurry vision, change in vision, discharge from eye(s) or eye pain Cardiovascular Cardiovascular: Reports chest pain; Denies claudication, edema or palpitations Respiratory/Chest Respiratory/Chest: Reports dyspnea and shortness of breath with exertion; Denies cough, hemoptysis or shortness of breath at rest Gastrointestinal Gastrointestinal: Denies abdominal pain, constipation, diarrhea, hematemesis, hematochezia, melena, nausea or vomiting Genitourinary Genitourinary: Denies dysuria, hematuria, urinary frequency, urinary hesitancy, urinary incontinence or urinary urgency Musculoskeletal Musculoskeletal: Denies back pain, joint pain, joint stiffness, joint swelling, myalgias or neck pain Neurologic Neurologic: Denies abnormal gait, abnormal speech, dizziness, focal weakness, headache(s), loss of vision, numbness, other visual disturbances, paresthesias, syncope or tingling Psychiatric Psychiatric: Denies anxiety, cognitive impairment, depression, irritability, mood swings or suicidal ideation Endocrine Endocrinology: Denies change in body appearance, cold intolerance, excessive sweating, heat intolerance, polydipsia or polyuria Hematologic/Lymphatic Hematologic/Lymphatic: Denies none, anemia, easy bleeding, easy bruising or lymphadenopathy Allergic/Immunologic Allergic/Immunologic: Denies rhinitis, urticaria, eczemia or asthma Vital Signs Vital Signs Vital Signs: 04/05/24 08:19 04/05/24 09:09 04/05/24 09:10 Temperature 97.2 F L Temperature Source Temporal Pulse Rate 104 H Respiratory Rate 16 Respiratory Effort Normal Non-Labored Blood Pressure 120/108 H Blood Pressure Mean 112 Blood Pressure Source Blood Pressure Position Blood Pressure Location Pulse Ox 94 96 Oxygen Delivery Method Room Air Room Air 04/05/24 09:25 04/05/24 10:04 04/05/24 11:00 Temperature 97.6 F L Temperature Source Oral Pulse Rate 82 74 75 Respiratory Rate 16 18 20 H Respiratory Effort Blood Pressure 130/85 H 118/98 H 128/93 H Blood Pressure Mean 100 104 104 Blood Pressure Source Blood Pressure Position Blood Pressure Location Pulse Ox 96 97 94 Oxygen Delivery Method Room Air Room Air Room Air 04/05/24 11:52 04/05/24 12:54 04/05/24 13:26 Temperature 97.6 F L 97.2 F L Temperature Source Temporal Pulse Rate 80 86 Respiratory Rate 21 H 16 Respiratory Effort Blood Pressure 132/94 H 144/99 H Blood Pressure Mean 106 114 Blood Pressure Source Monitor Blood Pressure Position Semi-Fowlers Blood Pressure Location Right Arm Pulse Ox 97 97 96 Oxygen Delivery Method Room Air Room Air Weight Weight: 93.3 kg Body Mass Index (BMI) 29.5 Physical Exam Const alert, oriented x3, no apparent distress and healthy appearing General Appearance: cooperative, well kempt and well developed Orientation / Consciousness: awake, oriented to person, oriented to place and oriented to time HEENT normocephalic, head/scalp atraumatic and moist oral mucous membranes Eyes PERRL, EOMs intact bilaterally and conjunctivae normal Neck supple, no JVD, thyroid normal and no carotid bruits General: trachea midline Resp normal respiratory effort, no retractions, no use of accessory muscles and clear to auscultation bilaterally Auscultation: Negative for rales, rhonchi or wheezes Cardio S1 normal heart sound, S2 normal heart sound, no murmurs, no rub and no gallops Cardio Narrative: Heart rate and rhythm is irregular GI normal to inspection, nondistended, normoactive bowel sounds, soft to palpation, non-tender and non-distended Extremity no clubbing, cyanosis or edema Skin no rashes or lesions noted General Skin Exam: no breakdown Neuro oriented x3, CN's II-XII intact bilaterally, moves all extremities, no focal motor deficits and no sensory deficits noted Sensorium / Orientation: awake and alert Speech: speech normal Psych affect normal Results Lab / Micro Data 04/05/24 08:48 04/05/24 08:48 Labs: Laboratory Results - last 24 hr 04/05/24 08:40: PT 20.3 H, INR 1.8, APTT 40.8 H, D-Dimer Quant (PE/DVT) 0.72 H* 04/05/24 08:48: WBC 8.5, RBC 5.22, Hgb 15.9, Hct 50.6, MCV 96.9 H, MCH 30.5, MCHC 31.4 L, RDW Std Deviation 50.3 H, RDW Coeff of Yadira 14.1, Plt Count 226, MPV 10.7, Immature Gran % (Auto) 0.500, Neut % (Auto) 79.5 H, Lymph % (Auto) 11.3 L, [place] % (Auto) 7.4, Eos % (Auto) 0.8, Baso % (Auto) 0.5, Absolute Neuts (auto) 6.8, Absolute Lymphs (auto) 0.96, Nucleated RBC % 0, Sodium 140, Potassium 4.7, Chloride 108 H, Carbon Dioxide 26.0, Anion Gap 6, BUN 34 H, Creatinine 1.83 H, Est GFR (MDRD) Af Amer 45 L, Est GFR (MDRD) Non-Af 37 L, BUN/Creatinine Ratio 18.6, Glucose 113 H, Calcium 9.7, Magnesium 1.9, Troponin I High Sens 104 H, B-Natriuretic Peptide 1945.1 H 04/05/24 10:43: Troponin I High Sens 100 H Rhythm Strip Rhythm Strip: A-fib Rate: 99 Ectopy: None Imaging Radiology Impression Chest X-Ray 04/05/24 08:55 IMPRESSION: Pleural-parenchymal changes are seen at the left lung base. This is new as compared to prior study. Left lower lobe infiltrate with small effusion should BE ruled out. Findings suggestive of scarring at the right lung base. Electronically Signed: Javy Amaya MD at 9:08 EDT , Assessment & Plan Assessment/Plan (1) Shortness of breath: PLAN: Plan 1. Chest pain in a patient with known coronary artery disease-patient was placed in observation status on PCU, serial cardiac enzymes will be obtained, patient will be seen by cardiology, patient will have an echocardiogram performed, if his cardiac enzymes do not elevate, he may l undergo a pharmacological nuclear stress test tomorrow. #2 shortness of breath-etiology unclear, patient may have exacerbation of chronic systolic congestive heart failure however, I have elected to place him on IV Lasix, labs will be monitored, beta natruretic peptide will be ordered, D-dimer will be ordered #3 chronic kidney disease stage IIIb-complicates care, management, recovery, and prognosis, labs will be monitored #4 chronic atrial fibrillation-patient is currently on rate control medication, he is taking warfarin but his INR is not therapeutic, I have elected to keep the patient off warfarin at this time in case he needs to undergo cardiac catheterization tomorrow. #5 coronary artery disease-patient had a history of cardiac stent placement in 2017 Total clinical time spent by myself addressing the patient's medical issues, reviewing all of his data, and collaborating with patient's care team: 75 minutes Charges/Coding Visit Charges Inpatient E&M: 88651 Init Hosp L3
--- NOTE | 2024-04-05 16:38 | CON.PCM.CA_ITS ---
<Statement entered by Edenilson Weems MD - 04/06/24 15:21> Pt seen & evaluated w/CHARLINE. I personally interviewed & exam the pt. I was involved in all aspects of pt's orders, interpretation of results & treatment Assessment & Plan Assessment/Plan (1) Shortness of breath: (2) Elevated troponin: (3) Dyspnea on exertion: (4) PAF (paroxysmal atrial fibrillation): (5) HFrEF (heart failure with reduced ejection fraction): (6) History of coronary artery stent placement: (7) Essential hypertension: (8) Hyperlipidemia: QUALIFIERS: Hyperlipidemia type: pure hypercholesterolemia Q ualified Code(s): E78.00 - Pure hypercholesterolemia, unspecified; E78.0 - Pure hypercholesterolemia PLAN: 89-year-old patient seen and evaluated in the ER at bedside at time of evaluation He presented with symptoms of shortness of breath and lightheadedness and dizziness. Short episode of chest pain which resolved by time he came to the ER. Patient has extensive cardiac history with cardiac catheterization 2019 revealed patency of LAD and left circumflex stent and nonobstructive atherosclerosis of the RCA EF was preserved at that time Subsequent follow-up in the cardiology clinic showed his EF is reduced to 40%. Cardiac care plan recommendation This patient has repeat echocardiogram which showed severely reduced LV systolic function with ejection fraction in the range of around 5-10% With acute on chronic systolic heart failure Has a chronic atrial fibrillation and also has underlying left bundle branch block. Patient had CKD with the range of creatinine of 1.8?2.0 very high risk patient for contrast-induced nephropathy and risk of dialysis Will maximize medical therapy will DC Entresto due to the renal insufficiency and will continue on diuretic monitor renal function and electrolytes. Patient was on Coumadin with a subtherapeutic INR Target INR range is 2?3. Will discuss plan of cardiac care, in detail with the patient and the . Edenilson Weems MD,[facility],[place] HPI Consult Data Date of Consult: 04/06/24 HPI Narrative Reason for Consultation: Acute on chronic systolic heart failure/A-fib with RVR HPI Narrative: MOLLY ANDERSEN, is a 89 M who presents [facility] Medical History Epistaxis Nasal bleeding Fatigue GI bleed HFrEF (heart failure with reduced ejection fraction) Elevated serum creatinine Chest tightness Dyspnea on exertion COVID-19 Nasal congestion Essential hypertension BPH (benign prostatic hyperplasia) Atherosclerosis of coronary artery of [place] heart without angina pectoris PAF (paroxysmal atrial fibrillation) (09/03/22) Obesity (BMI 30.0-34.9) Hyperlipidemia Home Medications ?Medication ?Instructions ?Recorded ?Last Taken ?Type wtehaadm-wlh-zqiub acid 0.4 1 tab PO DAILY 12/20/19 04/04/24 06:30 History mg-lycopene 300 mcg-lutein 250 mcg tablet metoprolol succinate 25 mg 25 mg PO DAILY 11/24/23 04/04/24 06:30 History tablet,extended release 24 hr sacubitril 24 mg-valsartan 26 mg 1 tab PO BID #180 tabs 12/02/23 04/04/24 06:30 Rx tablet (Entresto) furosemide 40 mg tablet 40 mg PO .COMPLEX #7 tabs 03/14/24 04/04/24 06:30 Rx warfarin 1 mg tablet 1 mg PO .COMPLEX #45 tabs 03/14/24 04/01/24 06:30 Rx warfarin 2 mg tablet 2 mg PO .COMPLEX 03/14/24 04/04/24 06:30 History spironolactone 25 mg tablet 25 mg PO DAILY #30 tabs 04/06/24 Unknown Rx (Aldactone) Allergy/AdvReac Type Severity Reaction Status Date / Time rivaroxaban (From Xarelto) AdvReac Severe Excessive Verified 04/05/24 08:23 bleeding Family History Son CAD (coronary artery disease) Surgical History History of left heart catheterization (01/17/19) H/O hand surgery History of arthroscopic knee surgery History of herniorrhaphy History of repair of rotator cuff History of cardioversion (~02/27/14) History of coronary artery stent placement (06/21/17) Social History (Updated 04/05/24 @ 12:43 by Jennifer Rogers) Smoking Status: Former smoker how long ago did patient quit smokin years ago alcohol intake: current alcohol intake frequency: a few times a month Alcohol type: other substance use type: does not use caffeine: Yes Type: coffee Number of servings: 2 Physical Exam Cardio Cardio Narrative: Seen and evaluated at bedside at bedside at time of evaluation Underlying cardiac rhythm is A-fib with RVR Cardiovascular exam S1-S2 is irregular Chest exam diminished air entry bilateral with mild bilateral inspiratory rales Examination lower extremity +1 lower extremity edema. Risk Stratification Risk Stratification Applicable: No Objective Data Vital Signs: Vital Signs Temp Pulse Resp BP Pulse Ox O2 Del Method 97.2 F L 86 16 144/99 H 96 Room Air 04/05/24 12:54 04/05/24 12:54 04/05/24 12:54 04/05/24 12:54 04/05/24 13:26 04/05/24 13:26 Oxygen Delivery Method Room Air Weight: 205 lb 11.06 oz Body Mass Index (BMI) 29.5 Lab / Micro Data 04/05/24 08:48 04/06/24 05:56 Labs: Laboratory Results - last 24 hr 04/05/24 08:40: PT 20.3 H, INR 1.8, APTT 40.8 H, D-Dimer Quant (PE/DVT) 0.72 H* 04/05/24 08:48: WBC 8.5, RBC 5.22, Hgb 15.9, Hct 50.6, MCV 96.9 H, MCH 30.5, M CHC 31.4 L, RDW Std Deviation 50.3 H, RDW Coeff of Yadira 14.1, Plt Count 226, MPV 10.7, Immature Gran % (Auto) 0.500, Neut % (Auto) 79.5 H, Lymph % (Auto) 11.3 L, [place] % (Auto) 7.4, Eos % (Auto) 0.8, Baso % (Auto) 0.5, Absolute Neuts (auto) 6.8, Absolute Lymphs (auto) 0.96, Nucleated RBC % 0, Sodium 140, Potassium 4.7, Chloride 108 H, Carbon Dioxide 26.0, Anion Gap 6, BUN 34 H, Creatinine 1.83 H, E st GFR (MDRD) Af Amer 45 L, Est GFR (MDRD) Non-Af 37 L, BUN/Creatinine Ratio 18.6, Glucose 113 H, Calcium 9.7, Magnesium 1.9, Troponin I High Sens 104 H, B- Natriuretic Peptide 1945.1 H 04/05/24 10:43: Troponin I High Sens 100 H Rhythm Strip Rhythm Strip: A-fib Rate: 99 Ectopy: None Cardiology Labs/Tests 04/05/24 08:40: PT 20.3 H, INR 1.8, APTT 40.8 H, D-Dimer Quant (PE/DVT) 0.72 H* 04/05/24 08:48: WBC 8.5, RBC 5.22, Hgb 15.9, Hct 50.6, MCV 96.9 H, MCH 30.5, M CHC 31.4 L, Plt Count 226, MPV 10.7, Immature Gran % (Auto) 0.500, Neut % (Auto) 79.5 H, Lymph % (Auto) 11.3 L, [place] % (Auto) 7.4, Eos % (Auto) 0.8, Baso % (Auto) 0.5, Absolute Neuts (auto) 6.8, Nucleated RBC % 0, Sodium 140, Potassium 4.7, Chloride 108 H, Carbon Dioxide 26.0, Anion Gap 6, BUN 34 H, Creatinine 1.83 H, Est GFR (MDRD) Af Amer 45 L, Est GFR (MDRD) Non-Af 37 L, BUN/Creatinine Ratio 18.6, Glucose 113 H, Calcium 9.7, Magnesium 1.9, B-Natriuretic Peptide 1945.1 H Rhythm: EKG: ECHO: Stress Test: Cardiac Cath: PCI: CT Surgery: Holter monitor: EPS: PPM: CXR: Chest CT Scan: Radiography Diagnostic Testing: Radiology Impression Chest X-Ray 04/05/24 08:55 IMPRESSION: Pleural-parenchymal changes are seen at the left lung base. This is new as compared to prior study. Left lower lobe infiltrate with small effusion should BE ruled out. Findings suggestive of scarring at the right lung base. Electronically Signed: Javy Amaya MD at 9:08 EDT , Echocardiogram 04/05/24 12:31 Interpretation Summary The estimated ejection fraction is 5-10% %. Severe LV systolic dysfunction Moderate biatrial enlargement Moderate MR Moderate TR Trivial AI In comparison to previous echo September 13, 2022 EF was 40% Remarkable EF reduction with severe LV systolic dysfunction. Contrast echo used/Definity. Ordering Physician: Fidencio Padilla Referring Physician: MD Lewis Stanley MD Performed By: Fred Santo and Student
[2024-04-05 16:52] LABS: Troponin-I HS 140 pg/mL (3.0-78.0)
--- NOTE | 2024-04-05 22:01 | PCM.HOSP.N ---
Hospitalist Note HR vacillating, up to 120s, will given lopressor 5 mg IV x 1 now.
[2024-04-05] MEDS: SACUBITRIL/VALSARTAN 24/26 MG TABLET 1 EACH PO (22:09)
[2024-04-05] MEDS: Metoprolol Tartrate 5 MG/5 ML Vial IV (22:30)
[2024-04-06 02:08] VITALS: BP 132/90; PULSE 89; RESP 16; TEMP 36.4; O2SAT 97
[2024-04-06] MEDS: Magnesium Sulfate 1 GM in Dextrose 5%-Water (100mL Bag) 100 ML IV (02:26)
[2024-04-06 05:34] VITALS: BP 120/103; PULSE 86; RESP 18; TEMP 36.6; O2SAT 94
[2024-04-06 06:57] LABS: Anion Gap 4 (5-15); BUN 35 mg/dL (7-18); BUN/Creat Ratio 19.6 RATIO (10-20); Calcium,Total 9.6 mg/dL (8.5-10.1); Chloride 104 mmol/L (98-107); Creatinine, Serum 1.79 mg/dL (0.70-1.30); EST Glomerular Filtration Rate 38 mL/min (>60); Est Glom Filt Rate - Afr Amer 46 mL/min (>60); Glucose 108 mg/dL (74-106); Potassium 4.8 mmol/L (3.5-5.1); Sodium Level 137 mmol/L (136-145)
[2024-04-06 07:03] VITALS: O2SAT 96
--- NOTE | 2024-04-06 09:22 | PCM.DC ---
Discharge Instructions Diet Discharge Diet: No restrictions Activity Discharge Activity: Return to Normal Activity Weight Bearing Status: Full weight bearing Follow Up Care Test Results: Test results from this visit will be discussed in further detail at your follow-up appointment, if applicable. Discharge Plan Admission Admit Date/Time: 04/05/24 11:54 Primary Reason for Your Visit: elevated cardiac enzymes, CHF Attending Provider: Fidencio Padilla Primary Care Provider: Sunny Justice Consulting Providers: Edenilson Weems Discharge Orders/Prescriptions Prescriptions: New spironolactone [Aldactone] 25 mg tablet 25 mg PO DAILY Qty: 30 0RF Continued metoprolol succinate 25 mg tablet extended release 24 hr 25 mg PO DAILY shseivzn-ilg-FK-lycopen-lutein 0.4-300-250 mg-mcg-mcg tablet 1 tab PO DAILY Patient Comments: mineral supplement Entresto 24-26 mg tablet 1 tab PO BID Qty: 180 3RF warfarin 1 mg tablet 1 mg PO .COMPLEX Qty: 45 3RF Protocol: Dose Management Condition: Tuesday Dose/Route: 3 mg Instruction: 1 x 1 mg tablet, 1 x 2 mg tablet Condition: Tuesday Dose/Route: 3 mg Instruction: 1 x 1 mg tablet, 1 x 2 mg tablet Condition: Tuesday Dose/Route: 3 mg Instruction: 1 x 1 mg tablet, 1 x 2 mg tablet Condition: Tuesday Dose/Route: 3 mg Instruction: 1 x 1 mg tablet, 1 x 2 mg tablet Condition: Dose/Route: 3 mg Instruction: 1 x 1 mg tablet, 1 x 2 mg tablet Condition: Tuesday Dose/Route: 3 mg Instruction: 1 x 1 mg tablet, 1 x 2 mg tablet Condition: Tuesday Dose/Route: 3 mg Instruction: 1 x 1 mg tablet, 1 x 2 mg tablet Protocol Text: Adjustment Start Date: Tuesday03/23/24 INR Value: 1.4 INR Date: 03/22/24 Recheck Date: 03/30/24 Rx Instructions: 1 mg orally daily on Tuesday and Tuesday (take a 2mg tablet daily Tuesday thorough Tuesday, or as directed); warfarin 2 mg tablet 2 mg PO .COMPLEX Protocol: Dose Management Condition: Tuesday Dose/Route: 3 mg Instruction: 1 x 1 mg tablet, 1 x 2 mg tablet Condition: Tuesday Dose/Route: 3 mg Instruction: 1 x 1 mg tablet, 1 x 2 mg tablet Condition: Tuesday Dose/Route: 3 mg Instruction: 1 x 1 mg tablet, 1 x 2 mg tablet Condition: Tuesday Dose/Route: 3 mg Instruction: 1 x 1 mg tablet, 1 x 2 mg tablet Condition: Dose/Route: 3 mg Instruction: 1 x 1 mg tablet, 1 x 2 mg tablet Condition: Tuesday Dose/Route: 3 mg Instruction: 1 x 1 mg tablet, 1 x 2 mg tablet Condition: Tuesday Dose/Route: 3 mg Instruction: 1 x 1 mg tablet, 1 x 2 mg tablet Protocol Text: Adjustment Start Date: Tuesday03/23/24 INR Value: 1.4 INR Date: 03/22/24 Recheck Date: 03/30/24 Rx Instructions: 2 mg orally daily Tuesday through Tuesday, take a 1mg tablet Tue and Tuesday; OR as directed furosemide 40 mg tablet 40 mg PO .COMPLEX Qty: 7 0RF Rx Instructions: 40 mg orally Daily X 7 days; Referrals / Follow Up: Sunny Justice MD [Primary Care Provider] - Pia Barnes PA [Med Staff - [facility] Practice Prof] - In 1 Week Disposition Disposition (needs filled in before D/C Order can be placed): Home, Self Care
--- NOTE | 2024-04-06 09:32 | PCM.DC.SUM ---
Providers Date of Admission: 04/05/24 Date of Discharge: 04/06/24 Primary Care Physician: Dr. Sunny Justice MD Consultations 04/05/24 12:31 Consult: Cardiology Routine Consulting Provider: Edenilson Weems Reason for Consult: elevated troponin EMERGENT Consult: No MD Notified: Yes Date Notified: 04/05/24 Time Notified: 11:57 Method of Notification: Verbal Reason For Visit: CHEST PAIN, ELEVATED TROP Diagnosis Discharge Diagnosis (1) Shortness of breath: Status: Acute Code(s): R06.02 - Shortness of breath (2) Elevated troponin: Status: Acute Code(s): R79.89 - Other specified abnormal findings of blood chemistry (3) Dyspnea on exertion: Status: Acute Code(s): R06.09 - Other forms of dyspnea (4) PAF (paroxysmal atrial fibrillation): Status: Chronic Code(s): I48.0 - Paroxysmal atrial fibrillation (5) HFrEF (heart failure with reduced ejection fraction): Status: Chronic Code(s): I50.20 - Unspecified systolic (congestive) heart failure (6) History of coronary artery stent placement: Status: Chronic Code(s): Z95.5 - Presence of coronary angioplasty implant and graft (7) Essential hypertension: Status: Chronic Code(s): I10 - Essential (primary) hypertension (8) Hyperlipidemia: Status: Chronic Code(s): E78.5 - Hyperlipidemia, unspecified Qualifiers: Hyperlipidemia type: pure hypercholesterolemia Qualified Code(s): E78.00 - Pure hypercholesterolemia, unspecified; E78.0 - Pure hypercholesterolemia Plan 1. Chest pain in a patient with known coronary artery disease-from demand ischemia #2 Acute on chronic congestive heart failure with reduced ejection fraction #3 chronic kidney disease stage IIIb-complicates care, management, recovery, and prognosis, labs will be monitored #4 chronic atrial fibrillation-patient is currently on rate control medication, he is taking warfarin but his INR is not therapeutic, I have elected to keep the patient off warfarin at this time in case he needs to undergo cardiac catheterization tomorrow. #5 coronary artery disease-patient had a history of cardiac stent placement in 2017 Total clinical time spent by myself addressing the patient's medical issues, reviewing all of his data, and collaborating with patient's care team: 75 minutes Medications at Discharge Home Medications hugxqiqr-shh-ipdqg acid 0.4 mg-lycopene 300 mcg-lutein 250 mcg tablet 1 tab PO DAILY 12/20/19 metoprolol succinate 25 mg tablet,extended release 24 hr 25 mg PO DAILY 11/24/23 sacubitril 24 mg-valsartan 26 mg tablet (Entresto) 1 tab PO BID #180 tabs 12/02/23 furosemide 40 mg tablet 40 mg PO .COMPLEX #7 tabs 03/14/24 warfarin 1 mg tablet 1 mg PO .COMPLEX #45 tabs 03/14/24 warfarin 2 mg tablet 2 mg PO .COMPLEX 03/14/24 spironolactone 25 mg tablet (Aldactone) 25 mg PO DAILY #30 tabs 04/06/24 Hospital Course Operations None Procedures 2-D Echocardiogram Summary of Care Provided Minutes Spent on Discharge: 32 Hospital Course: This 89-year-old white male was seen in the emergency room at [facility] with sudden onset of substernal chest pain and shortness of breath after he went to get out of his car. The chest pain did not last long and by the time he reached the emergency room for evaluation, the chest discomfort was gone, patient's pulse ox did not indicate the need for supplemental oxygen. Patient's EKG was performed and showed atrial fibrillation with a well-controlled ventricular response which was a normal rhythm for the patient. Left bundle branch block was noted. Patient's labs were obtained, troponin was slightly elevated at 104, repeat troponin in the emergency room was 100., CBC was unremarkable, patient's chemistry profile was remarkable for creatinine of 1.83 and a BUN of 34. Patient's chest x-ray showed pleural-parenchymal changes at the left lung base, left lower lobe infiltrate with small effusion should be ruled out, there were findings suggestive of scarring of the right lung base. Patient was placed in observation status on PCU and seen in consultation with cardiology, an echocardiogram was obtained which showed a very severely impaired ejection fraction of 5 to 10%. There was also noted to be mitral regurg. Due to this fact, it was not felt that the patient would be appropriate for a stress test, repeat cardiac enzymes while on PCU showed only minimal elevation of the troponin at 108. This examiner felt that the patient had demand ischemia. Patient's D-dimer was not elevated after correction for his age so it was not felt that the patient had a PE. Patient was placed on IV Lasix, he did not require supplemental oxygen during his hospital stay. On 04/06/2024, patient was seen and examined: On examination he appeared in good health and spirits. Vital signs as documented. Skin warm and dry and without overt rashes. Neck without JVD, neck was supple, trachea midline, thyroid was normal. Lungs clear bilaterally, normal air movement was noted. Heart exam notable for irregular rhythm, normal sounds and absence of murmurs, rubs or gallops. Abdomen unremarkable and without evidence of organomegaly, masses, or abdominal aortic enlargement. Bowel sounds are present, abdomen is not distended. Extremities nonedematous, no cyanosis was noted, no clubbing was noted. Neuro: Cranial nerves II through XII are grossly intact, no focal motor deficits were noted, sensation to light touch and pinprick intact, motor exam 5/5 throughout. Psych: Patient is alert and oriented x3, he does not appear anxious or depressed, he does not appear agitated. Patient was discharged home stable condition on 04/06/2024. Weight / BMI Weight Weight: 93.3 kg Body Mass Index (BMI) 29.5 ABG / Lab / Microbiology Data 04/05/24 08:48 04/06/24 05:56 Laboratory: Laboratory Results - last 24 hr 04/05/24 08:40: PT 20.3 H, INR 1.8, APTT 40.8 H, D-Dimer Quant (PE/DVT) 0.72 H* 04/05/24 08:48: B-Natriuretic Peptide 1945.1 H 04/05/24 10:43: Troponin I High Sens 100 H 04/05/24 15:18: Troponin I High Sens 140 H* 04/06/24 05:56: Sodium 137, Potassium 4.8, Chloride 104, Carbon Dioxide 29.0, Anion Gap 4 L, BUN 35 H, Creatinine 1.79 H, Estim Creat Clear Calc 32.10, Est GFR (MDRD) Af Amer 46 L, Est GFR (MDRD) Non-Af 38 L, BUN/Creatinine Ratio 19.6, Glucose 108 H, Calcium 9.6 Radiography Diagnostic Testing: Radiology Impression Echocardiogram 04/05/24 12:31 Interpretation Summary The estimated ejection fraction is 5-10% %. Severe LV systolic dysfunction Moderate biatrial enlargement Moderate MR Moderate TR Trivial AI In comparison to previous echo September 13, 2022 EF was 40% Remarkable EF reduction with severe LV systolic dysfunction. Contrast echo used/Definity. Ordering Physician: Fidencio Padilla Referring Physician: MD Lewis Stanley MD Performed By: Fred Santo and Student D/C Instructions Discharge Diet: No restrictions Weight Bearing Status: Full weight bearing Meaningful Use Info Meaningful Use Meaningful Use Diagnoses (Choose all that apply): CHF CHF ALEXIS/ARB ordered at discharge?: Yes Documented LVEF (%): 10 Ischemic Stroke Statin Dosing Therapy Reference: STATIN DOSE THERAPY REFERENCE: * Patients > 75 years receive moderate or high dose statin therapy. * Patients 75 years or YOUNGER should receive HIGH intensity statin dose unless contraindicated. You will be required to document reason for non-treatment if statin daily dose does not meet guidelines. HIGH DOSE STATIN THERAPY DAILY Atorvastatin > than or = to 40 mg Rosuvastatin > than or = to 20 mg Amlodipine + Atorvastatin > than or = to 2.5/40 mg Ezetimibe + Simvastatin 10/80 mg Simvastatin 80mg Discharge Plan Admission Admit Date/Time: 04/05/24 11:54 Primary Reason for Your Visit: elevated cardiac enzymes, CHF Attending Provider: Fidencio Padilla Primary Care Provider: Sunny Justice Consulting Providers: Edenilson Weems Discharge Orders/Prescriptions Prescriptions: New spironolactone [Aldactone] 25 mg tablet 25 mg PO DAILY Qty: 30 0RF Continued metoprolol succinate 25 mg tablet extended release 24 hr 25 mg PO DAILY qvbmgiwi-wcw-OM-lycopen-lutein 0.4-300-250 mg-mcg-mcg tablet 1 tab PO DAILY Patient Comments: mineral supplement Entresto 24-26 mg tablet 1 tab PO BID Qty: 180 3RF warfarin 1 mg tablet 1 mg PO .COMPLEX Qty: 45 3RF Protocol: Dose Management Condition: Tuesday Dose/Route: 3 mg Instruction: 1 x 1 mg tablet, 1 x 2 mg tablet Condition: Tuesday Dose/Route: 3 mg Instruction: 1 x 1 mg tablet, 1 x 2 mg tablet Condition: Tuesday Dose/Route: 3 mg Instruction: 1 x 1 mg tablet, 1 x 2 mg tablet Condition: Tuesday Dose/Route: 3 mg Instruction: 1 x 1 mg tablet, 1 x 2 mg tablet Condition: Dose/Route: 3 mg Instruction: 1 x 1 mg tablet, 1 x 2 mg tablet Condition: Tuesday Dose/Route: 3 mg Instruction: 1 x 1 mg tablet, 1 x 2 mg tablet Condition: Tuesday Dose/Route: 3 mg Instruction: 1 x 1 mg tablet, 1 x 2 mg tablet Protocol Text: Adjustment Start Date: Tuesday03/23/24 INR Value: 1.4 INR Date: 03/22/24 Recheck Date: 03/30/24 Rx Instructions: 1 mg orally daily on Tuesday and Tuesday (take a 2mg tablet daily Tuesday thorough Tuesday, or as directed); warfarin 2 mg tablet 2 mg PO .COMPLEX Protocol: Dose Management Condition: Tuesday Dose/Route: 3 mg Instruction: 1 x 1 mg tablet, 1 x 2 mg tablet Condition: Tuesday Dose/Route: 3 mg Instruction: 1 x 1 mg tablet, 1 x 2 mg tablet Condition: Tuesday Dose/Route: 3 mg Instruction: 1 x 1 mg tablet, 1 x 2 mg tablet Condition: Tuesday Dose/Route: 3 mg Instruction: 1 x 1 mg tablet, 1 x 2 mg tablet Condition: Dose/Route: 3 mg Instruction: 1 x 1 mg tablet, 1 x 2 mg tablet Condition: Tuesday Dose/Route: 3 mg Instruction: 1 x 1 mg tablet, 1 x 2 mg tablet Condition: Tuesday Dose/Route: 3 mg Instruction: 1 x 1 mg tablet, 1 x 2 mg tablet Protocol Text: Adjustment Start Date: Tuesday03/23/24 INR Value: 1.4 INR Date: 03/22/24 Recheck Date: 03/30/24 Rx Instructions: 2 mg orally daily Tuesday through Tuesday, take a 1mg tablet Tue and Tuesday; OR as directed furosemide 40 mg tablet 40 mg PO .COMPLEX Qty: 7 0RF Rx Instructions: 40 mg orally Daily X 7 days; Referrals / Follow Up: Sunny Justice MD [Primary Care Provider] - Pia Barnes, PA [Med Staff - [facility]] - 04/26/24 2:00 pm (Appointment is with Asha Zurita N.P.) Disposition Disposition (needs filled in before D/C Order can be placed): Home, Self Care Charges/Coding Visit Charges Inpatient E&M: 12958 Disch Hosp >30min
[2024-04-06 09:39] VITALS: BP 108/86; PULSE 94; RESP 17; TEMP 36.6; O2SAT 95
--- NOTE | 2024-04-06 09:51 | CASEMGMT ---
Patient has order for discharge. RN CM in to discuss needs at discharge. Patient independent, lives with . and son in room. Patient denies needs or help at discharge. Patient and family had no further questions or concerns.
[2024-04-06 09:52] VITALS: PULSE 95
[2024-04-06] MEDS: SACUBITRIL/VALSARTAN 24/26 MG TABLET 1 EACH PO (09:52)
[2024-04-06] MEDS: Metoprolol(XL)Succ 25 MG Tablet PO (09:52)
--- NOTE | 2024-04-06 10:05 | PHA.DC.MC.R ---
Pharmacy [facility] has performed discharge medication reconciliation and counseling for this patient. 1. SPIRONOLACTONE 25MG PO DAILY The patient's discharge medication list was reviewed for discrepancies and discrepancies were resolved. The patient was counseled on the following discharge medications and changes in medications for homegoing were reviewed. The Reason for Use, instructions for use, and potential side effects were reviewed for all new medications. The patient's questions regarding all of their medications were answered. The patient was able to verbally demonstrate an understanding of their discharge medications. Medications at Discharge Home Medications fnolufvq-dlc-tcdjr acid 0.4 mg-lycopene 300 mcg-lutein 250 mcg tablet 1 tab PO DAILY 12/20/19 metoprolol succinate 25 mg tablet,extended release 24 hr 25 mg PO DAILY 11/24/23 sacubitril 24 mg-valsartan 26 mg tablet (Entresto) 1 tab PO BID #180 tabs 12/02/23 furosemide 40 mg tablet 40 mg PO .COMPLEX #7 tabs 03/14/24 warfarin 1 mg tablet 1 mg PO .COMPLEX #45 tabs 03/14/24 warfarin 2 mg tablet 2 mg PO .COMPLEX 03/14/24 spironolactone 25 mg tablet (Aldactone) 25 mg PO DAILY #30 tabs 04/06/24
== END 2024-04-06 09:32 | disposition home or self-care (01) ==
LOC: ED 11:44 → PCU 12:41
PROVIDERS: Admitting Provider Internal Medicine; Emergency Provider Emergency Medicine; PCP Family Medicine; Visit Provider Internal Medicine
DX: I48.0 Paroxysmal atrial fibrillation (principal); I50.23 Acute on chronic systolic (congestive) heart failure; I13.0 Hypertensive heart and chronic kidney disease with heart failure and stage 1 through stage 4 chronic kidney disease, or unspecified chronic kidney disease; Z87.891 Personal history of nicotine dependence; Z86.16 Personal history of COVID-19; N18.2 Chronic kidney disease, stage 2 (mild); I25.10 Atherosclerotic heart disease of native coronary artery without angina pectoris; E78.00 Pure hypercholesterolemia, unspecified; Z95.5 Presence of coronary angioplasty implant and graft; I44.7 Left bundle-branch block, unspecified; Z79.01 Long term (current) use of anticoagulants; N40.0 Benign prostatic hyperplasia without lower urinary tract symptoms; Z79.899 Other long term (current) drug therapy; R79.1 Abnormal coagulation profile; Z51.81 Encounter for therapeutic drug level monitoring
CPT/HCPCS: 36415; 71046; 80048; 83735; 83880; 84484; 85025; 85379; 85610; 85730; 93005; 93306; 96372; 96374; 96375; 96376; 99221; 99285; Q9957; A4216; C8929; G0378; J1940

== ENCOUNTER → 2024-04-26 | Outpatient (CLI) | payer MEDICARE, OTHER, SELFPAY ==
[2017-06-21 12:03] VITALS: BMI 30.9
[2024-04-26 15:30] LABS: Absolute Lymphocyte Count 1.64 X10^3/uL (0.83-4.51); Absolute Neutrophil Count 4.8 X10^3/uL (2.0-7.7); Basophil# 0.03 X10^3/uL; Basophil% 0.4 % (0-1); Eosinophil# 0.09 X10^3/uL; Eosinophils% 1.3 % (0-5); Hematocrit 51.8 % (40-54); Hemoglobin 16.8 g/dL (13.0-16.5); Lymphocyte # 1.64 X10^3/ul (0.83-4.51); Lymphocyte % 22.9 % (19-41); Mean Corp Hgb Conc 32.4 g/dL (32-36); Mean Corpuscular Hgb 30.9 pg (27.0-32.0); Mean Corpuscular Volume 95.4 fL (80-94); Monocyte# 0.57 X10^3/uL; NRBC Flagged by Analyzer 0 % (0-5); Neutrophil # 4.81 X10^3/uL (2.7-7.7); Neutrophil % 67.3 % (47-70); Platelet Count 271 K/mm3 (150-450); RBC Distribution Width CV 13.5 % (11.6-14.6); RBC Distribution Width SD 47.9 fl (35.1-43.9); Red Blood Count 5.43 M/mm3 (4.6-6.2); White Blood Count 7.2 K/mm3 (4.4-11.0)
[2024-04-26 15:41] LABS: International Normalized Ratio 1.2; Prothrombin Time (Protime)PT. 15.3 SECONDS (11.7-14.9)
[2024-04-26 15:53] LABS: BNP,B-Type NATRIURETIC PEPTIDE 1027.3 pg/mL (0-100)
[2024-04-26 15:54] LABS: Anion Gap 6 (5-15); BUN 55 mg/dL (7-18); BUN/Creat Ratio 19.9 RATIO (10-20); Calcium,Total 10.1 mg/dL (8.5-10.1); Chloride 106 mmol/L (98-107); Creatinine, Serum 2.76 mg/dL (0.70-1.30); EST Glomerular Filtration Rate 23 mL/min (>60); Est Glom Filt Rate - Afr Amer 28 mL/min (>60); Glucose 116 mg/dL (74-106); Sodium Level 138 mmol/L (136-145)
== END | disposition home or self-care (01) ==
LOC: LAB 15:10
PROVIDERS: PCP Family Medicine; Referring Provider Nurse Practitioner Gerontology; Visit Provider Nurse Practitioner Gerontology
DX: R06.09 Other forms of dyspnea (principal); I48.0 Paroxysmal atrial fibrillation; Z79.01 Long term (current) use of anticoagulants
CPT/HCPCS: 36415; 80048; 83880; 85025; 85610

== ENCOUNTER 2024-04-30 07:53 | Outpatient (RCR) | payer MEDICARE, OTHER, SELFPAY ==
[2017-06-21 12:03] VITALS: BMI 30.9
[2024-04-30 08:53] LABS: International Normalized Ratio 1.2; Prothrombin Time (Protime)PT. 14.9 SECONDS (11.7-14.9)
== END 2024-04-30 18:00 | disposition home or self-care (01) ==
LOC: LAB 07:53
PROVIDERS: PCP Family Medicine; Referring Provider Internal Medicine Cardiovascular Disease; Visit Provider Internal Medicine Cardiovascular Disease
DX: I48.0 Paroxysmal atrial fibrillation (principal); Z79.01 Long term (current) use of anticoagulants
CPT/HCPCS: 36415; 85610

== ENCOUNTER → 2024-05-14 | Outpatient (CLI) | payer MEDICARE, OTHER, SELFPAY ==
[2017-06-21 12:03] VITALS: BMI 30.9
--- NOTE | 2024-05-14 14:02 | CT_ITS ---
STUDY: CT BRAIN WITHOUT CONTRAST REASON FOR EXAM: Male, 89 years old. History of multiple falls. Patient is on anticoagulants. RADIATION DOSAGE (If Supplied By Facility): CTDIvol = ( 44.99 ) mGy, DLP = ( 812.98 ) mGycm TECHNIQUE: Transaxial CT imaging of the brain was performed without administration of intravenous contrast material. Individualized dose optimization techniques were used for this CT. COMPARISON: No relevant priors. FINDINGS: Normal soft tissue structures. Normal calvarium. There is mild cerebral atrophy with widening of the extra-axial spaces and ventricular dilatation. There are areas of decreased attenuation within the white matter tracts of the supratentorial brain, consistent with microvascular disease changes. Normal basal ganglia and thalami. Normal brainstem. There is mild cerebellar atrophy. There is no intracranial hemorrhage. There are no findings of an acute ischemic infarction. Atherosclerotic calcification of the cavernous portions of the internal carotid arteries bilaterally. Normal visualized paranasal sinuses. CT/Brain/Head without Contrast IMPRESSION: Chronic involutional changes of the brain. Electronically Signed: Javy Amaya MD at 14:30 EDT ,
== END | disposition home or self-care (01) ==
PROVIDERS: PCP Family Medicine; Referring Provider Physician Assistant Medical; Visit Provider Physician Assistant Medical
DX: S09.90XA Unspecified injury of head, initial encounter (principal); Z79.01 Long term (current) use of anticoagulants
CPT/HCPCS: 70450

== ENCOUNTER → 2024-09-19 | Outpatient (CLI) | payer MEDICARE, OTHER, SELFPAY ==
[2017-06-21 12:03] VITALS: BMI 30.9
[2024-09-19 12:17] LABS: Absolute Lymphocyte Count 0.99 X10^3/uL (0.83-4.51); Absolute Neutrophil Count 4.8 X10^3/uL (2.0-7.7); Basophil# 0.03 X10^3/uL; Basophil% 0.5 % (0-1); Eosinophil# 0.12 X10^3/uL; Eosinophils% 1.8 % (0-5); Hematocrit 49.9 % (40-54); Hemoglobin 15.5 g/dL (13.0-16.5); Lymphocyte # 0.99 X10^3/ul (0.83-4.51); Mean Corp Hgb Conc 31.1 g/dL (32-36); Mean Corpuscular Hgb 30.1 pg (27.0-32.0); Mean Corpuscular Volume 96.9 fL (80-94); Mean Platelet Vol. 10.9 fl (6.2-12.0); Monocyte# 0.65 X10^3/uL; Monocyte% 9.9 % (0-10); NRBC Flagged by Analyzer 0 % (0-5); Neutrophil # 4.78 X10^3/uL (2.7-7.7); Neutrophil % 72.6 % (47-70); Platelet Count 228 K/mm3 (150-450); RBC Distribution Width CV 13.6 % (11.6-14.6); RBC Distribution Width SD 49.2 fl (35.1-43.9); Red Blood Count 5.15 M/mm3 (4.6-6.2); White Blood Count 6.6 K/mm3 (4.4-11.0)
[2024-09-19 12:28] LABS: Anion Gap 5 (5-15); BUN 39 mg/dL (7-18); BUN/Creat Ratio 17.4 RATIO (10-20); Calcium,Total 9.5 mg/dL (8.5-10.1); Chloride 107 mmol/L (98-107); Creatinine, Serum 2.24 mg/dL (0.70-1.30); EST Glomerular Filtration Rate 29 mL/min (>60); Est Glom Filt Rate - Afr Amer 36 mL/min (>60); Glucose 111 mg/dL (74-106); Potassium 5.2 mmol/L (3.5-5.1); Sodium Level 141 mmol/L (136-145)
[2024-09-19 12:45] LABS: BNP,B-Type NATRIURETIC PEPTIDE 3047.1 pg/mL (0-100)
== END | disposition home or self-care (01) ==
PROVIDERS: PCP Family Medicine; Referring Provider Nurse Practitioner Gerontology; Visit Provider Nurse Practitioner Gerontology
DX: I50.20 Unspecified systolic (congestive) heart failure (principal); Z51.81 Encounter for therapeutic drug level monitoring; Z79.899 Other long term (current) drug therapy; R06.09 Other forms of dyspnea
CPT/HCPCS: 36415; 80048; 83880; 85025

== ENCOUNTER → 2024-09-28 | Outpatient (CLI) | payer MEDICARE, OTHER, SELFPAY ==
[2017-06-21 12:03] VITALS: BMI 30.9
[2024-09-28 10:56] LABS: ALB/GLOB Ratio 1.2 RATIO (0.9-2.4); AST(SGOT) 15 U/L (15-37); Alanine Aminotransfer ALT/SGPT 38 U/L (16-61); Albumin, Serum 3.5 g/dL (3.2-5.0); Alkaline Phosphatase 61 U/L (45-117); Anion Gap 7 (5-15); BUN 43 mg/dL (7-18); BUN/Creat Ratio 19.5 RATIO (10-20); Calcium,Total 9.4 mg/dL (8.5-10.1); Chloride 107 mmol/L (98-107); Cholesterol 152 mg/dL (200); EST Glomerular Filtration Rate 30 mL/min (>60); Est Glom Filt Rate - Afr Amer 36 mL/min (>60); Glucose 120 mg/dL (74-106); High Density Lipoprotein 49 mg/dL; Protein, Total 6.5 g/dL (6.4-8.2); Sodium Level 140 mmol/L (136-145); Triglycerides 100 mg/dL; Very Low Density Lipoprotein 20 mg/dL (5-40)
== END | disposition home or self-care (01) ==
LOC: MTLAB 09:02
PROVIDERS: PCP Family Medicine; Referring Provider Family Medicine; Visit Provider Family Medicine
DX: Z00.00 Encounter for general adult medical examination without abnormal findings (principal); I50.9 Heart failure, unspecified
CPT/HCPCS: 36415; 80053; 80061; 84153; G0103

== ENCOUNTER 2024-10-23 02:06 | Observation (INO) | payer MEDICARE, OTHER, SELFPAY ==
[2017-06-21 12:03] VITALS: BMI 30.9
[2024-10-23] VITALS (8 sets, daily range): BP systolic 95–134; BP diastolic 74–104; PULSE 70–121; RESP 18–19; TEMP 35.8–36.8; O2SAT 95–99; BMI 30.7; BMI 27.3
--- NOTE | 2024-10-23 02:52 | EKG12_ITS ---
Test Reason : CP Blood Pressure : */* mmHG Vent. Rate : 108 BPM Atrial Rate : * BPM P-R Int : * ms QRS Dur : 148 ms QT Int : 318 ms P-R-T Axes : * -32 90 degrees QTcB Int : 426 ms Atrial fibrillation with rapid ventricular response Left axis deviation Left bundle branch block Abnormal ECG Confirmed by DEBORA RICCI, KRIS ([id number]), digital editor KP DEGROOT ([id number]) on 10/25/2024 10:30:26 AM Referred By: TL Confirmed By: KRIS CAZARES MD
--- NOTE | 2024-10-23 02:52 | RAD_ITS ---
INDICATION: sob EXAMINATION/TECHNIQUE: X-RAY - XR Chest 2 Views COMPARISON: CR ChestMay 2023 8:56am FINDINGS: LINES/DEVICES: None. LUNGS: Moderate size left pleural effusion with compressive atelectasis in the left lung base. MEDIASTINUM AND CARDIOVASCULAR STRUCTURES: Moderate cardiomegaly. BONES AND SOFT TISSUES: Unremarkable. RAD/Chest PA and Lateral IMPRESSION: Moderate size left pleural effusion with compressive atelectasis in the left lung base. Moderate cardiomegaly. Electronically Signed: Fannie Smith MD at 4:37 EST ,
[2024-10-23 03:03] LABS: Absolute Lymphocyte Count 1.17 X10^3/uL (0.83-4.51); Absolute Neutrophil Count 4.5 X10^3/uL (2.0-7.7); Basophil# 0.01 X10^3/uL; Basophil% 0.2 % (0-1); Eosinophil# 0.05 X10^3/uL; Eosinophils% 0.8 % (0-5); Hemoglobin 15.2 g/dL (13.0-16.5); Lymphocyte # 1.17 X10^3/ul (0.83-4.51); Lymphocyte % 18.1 % (19-41); Mean Corp Hgb Conc 31.7 g/dL (32-36); Mean Corpuscular Hgb 30.5 pg (27.0-32.0); Mean Corpuscular Volume 96.4 fL (80-94); Mean Platelet Vol. 11.7 fl (6.2-12.0); Monocyte% 10.8 % (0-10); NRBC Flagged by Analyzer 0 % (0-5); Neutrophil # 4.52 X10^3/uL (2.7-7.7); Neutrophil % 69.9 % (47-70); Platelet Count 180 K/mm3 (150-450); RBC Distribution Width CV 14.5 % (11.6-14.6); RBC Distribution Width SD 49.9 fl (35.1-43.9); Red Blood Count 4.98 M/mm3 (4.6-6.2); White Blood Count 6.5 K/mm3 (4.4-11.0)
--- NOTE | 2024-10-23 03:24 | EDS_ITS ---
HPI History of Present Illness Chief Complaint: Chest Pain Informant: patient, spouse/S.O. and family Narrative Narrative: By EMS from home. Son present spouse present. History of A-fib on Eliquis history of cardiomyopathy followed by cardiology. He states follow-up a few weeks ago with cardiology office told his ejection fraction is 20%. He does not get leg swelling. Report increasing dyspnea. Denies orthopnea. He states mild chest discomfort. He has had 2 stents last time 2016. He states on his last visit his medications were all changed around he cannot recall at this time. Last 2 days mild productive cough with phlegm. No fever chills or sweats. CVD Risk Factors: Positive for Hypertension and Hypercholesterolemia [facility] Medical History (Updated 10/23/24 @ 05:28 by Gwen Cano) Bradycardia Subtherapeutic international normalized ratio (INR) Elevated troponin Chest pain Shortness of breath Epistaxis Nasal bleeding Fatigue GI bleed HFrEF (heart failure with reduced ejection fraction) Elevated serum creatinine Chest tightness Dyspnea on exertion COVID-19 Nasal congestion Essential hypertension BPH (benign prostatic hyperplasia) Atherosclerosis of coronary artery of [place] heart without angina pectoris PAF (paroxysmal atrial fibrillation) (09/03/22) Obesity (BMI 30.0-34.9) Hyperlipidemia Home Medications ?Medication ?Instructions ?Recorded ?Last Taken ?Type apixaban 2.5 mg tablet (Eliquis) 2.5 mg PO BID STOP WARFARIN #60 04/30/24 Unknown Rx tabs carvedilol 3.125 mg tablet 3.125 mg PO BID #60 tabs 04/30/24 Unknown Rx sacubitril 24 mg-valsartan 26 mg 0.5 tab PO BID #180 tabs 04/30/24 Unknown Rx tablet (Entresto) spironolactone 25 mg tablet 25 mg PO DAILY #30 tabs 05/01/24 Unknown Rx (Aldactone) Handicap Placard #1 ea 06/26/24 Unknown Rx furosemide 40 mg tablet 40 mg PO BID 10/10/24 Unknown History isosorbide mononitrate 30 mg 30 mg PO QDAY 10/10/24 Unknown History tablet,extended release 24 hr multivitamin 1 tab PO QAM 10/10/24 Unknown History Allergy/AdvReac Type Severity Reaction Status Date / Time rivaroxaban (From Xarelto) AdvReac Severe Excessive Verified 10/23/24 02:09 bleeding Family History Son CAD (coronary artery disease) Surgical History History of left heart catheterization (01/17/19) H/O hand surgery History of arthroscopic knee surgery History of herniorrhaphy History of repair of rotator cuff History of cardioversion (~02/27/14) History of coronary artery stent placement (06/21/17) Social History Smoking Status: Former smoker how long ago did patient quit smokin years ago alcohol intake: current alcohol intake frequency: a few times a month Alcohol type: other substance use type: does not use caffeine: Yes Type: coffee Number of servings: 2 ROS ROS ED Constitutional Constitutional ED: Denies chills, fever(s) or sweats Eyes Eyes: Denies change in vision ENT ENT ED: Denies dysphagia or sore throat Cardiovascular Cardiovascular: Reports chest pain; Denies leg edema, palpitations or racing heartbeat Respiratory/Chest Respiratory/Chest: Reports cough and dyspnea; Denies dyspnea on exertion Gastrointestinal Gastrointestinal: Denies abdominal pain, diarrhea, nausea or vomiting Genitourinary Genitourinary ED: Denies dysuria, hematuria or urinary frequency Musculoskeletal Musculoskeletal: Denies back pain, extremity pain or neck pain Integumentary Denies rash or wounds Neurologic Neurologic: Denies headache(s), paresthesias or weakness EXAM Physical Exam Const Vital Signs: 10/23/24 02:06 10/23/24 02:06 10/23/24 03:06 Temperature 97.8 F Temperature Source Oral Pulse Rate 121 H 112 H Respiratory Rate 18 18 Respiratory Effort Normal Non-Labored Blood Pressure 134/104 H 117/89 H Blood Pressure Mean 114 98 Pulse Ox 95 98 Oxygen Delivery Method Room Air Room Air 10/23/24 03:58 10/23/24 04:00 Temperature 98.2 F Temperature Source Pulse Rate 99 106 H Respiratory Rate 19 H 18 Respiratory Effort Blood Pressure 112/78 108/96 H Blood Pressure Mean 89 100 Pulse Ox 99 99 Oxygen Delivery Method Room Air Positive well nourished and well developed General Appearance ED: well developed and NAD HEENT Reports moist mucous membranes normocephalic and atraumatic Eyes EOMs intact bilaterally and conjunctivae normal General Eye ED: Yes normal appearance of both eyes Neck no lymphadenopathy and supple General: Negative for tenderness Chest Wall Chest: Negative for tenderness Resp normal respiratory effort and normal air movement Effort and Inspection: symmetric chest movement; Negative for respiratory distress Cardio no murmurs Rate: tachycardic Rhythm: abnormal rhythm Peripheral Pulses: pulses 2+ throughout GI normal to inspection, nondistended, normoactive bowel sounds and non-tender Palpation: Negative for guarding or rebound tenderness present Back/Spine no CVA tenderness and no thoracic nor lumbar tenderness Extremity normal to inspection General Extremety ED: Negative for edema or tenderness General Extremity: Negative for edema Neuro oriented x3 and no sensory deficits noted Sensorium / Orientation: awake and alert Skin no rashes or lesions noted and no wounds MDM MDM MDM Narrative Medical decision making narrative: Interventions / MDM: Differential diagnosis: Left pleural effusion, atrial fibrillation, heart failure with reduced ejection fraction, elevated troponin Diagnosis considered but do not suspect: N/A My EKG interpretation: Atrial fibrillation rate of 108, left bundle branch block, no ST or T wave changes. Similar left bundle branch in May of this year. Imaging independently reviewed and interpreted by myself: 2 view chest x-ray new left pleural effusion. External documents reviewed: Echocardiogram March 2024 EF of 5 to 10%. He had cardiac cath 2019 patent mid LAD and patent circumflex OM1 stents. Other diffuse disease of 30%. Review of cardiology office note 10/10/2024. Patient hypotensive in the office therefore his Entresto was stopped. He is continuing Lasix 40 mg twice a day. They discussed his severe low ejection fraction. They were awaiting repeat echocardiogram to help with neck steps of treatment. Test considered but not ordered:N/A ED course: EKG A-fib RVR. No leg swelling. Reports increasing dyspnea with intermittent chest pain. Symptoms worse with exertion. Cardiac workup and BNP ordered for further evaluation. 0410: Creatinine 2.6 up from 2.2. Initial troponin 187. Chest x-ray new left pleural effusion. I discussed patient family in the room. Does not appear they would want heart cath for further evaluation. Discussed his new pleural effusion. Discussed possible admission to help with symptom control with medical management. 0420: I spoke with hospitalist Dr. Lehman we reviewed and discussed his history and his workup. He will evaluate patient in the ED and help with disposition. 0440: Patient evaluated hospitalist, he will admit him under observation due to pleural effusion. No active chest pains. Will hold on anticoagulation at this time as they evaluate in the morning for possible thoracentesis. He will be admitted to PCU. Re-evaluation: stable Disposition discussed with patient/family/significant other: Patient and family Case discussed with consulting clinician: Hospitalist This note was generated with [employer] dictation software. It may contain incorrect words, spelling, and punctuation that were not noted in checking the note before signing. Lab Data Attestation: I reviewed the patient's lab results. Labs: Laboratory Results - last 24 hr 10/23/24 10/23/24 10/23/24 01:55 03:29 04:11 WBC 6.5 RBC 4.98 Hgb 15.2 Hct 48.0 MCV 96.4 H MCH 30.5 MCHC 31.7 L RDW Std Deviation 49.9 H RDW Coeff of Yadira 14.5 Plt Count 180 MPV 11.7 Immature Gran % (Auto) 0.200 Neut % (Auto) 69.9 Lymph % (Auto) 18.1 L [place] % (Auto) 10.8 H Eos % (Auto) 0.8 Baso % (Auto) 0.2 Absolute Neuts (auto) 4.5 Absolute Lymphs (auto) 1.17 Nucleated RBC % 0 Sodium 136 Potassium 5.0 Chloride 101 Carbon Dioxide 25.0 Anion Gap 10 BUN 57 H Creatinine 2.62 H Estim Creat Clear Calc 22.34 Est GFR (MDRD) Af Amer 30 L Est GFR (MDRD) Non-Af 25 L BUN/Creatinine Ratio 21.8 H Glucose 107 H Calcium 9.9 Troponin I High Sens 187 H* 169 H* B-Natriuretic Peptide Cancelled Cancelled 3931.2 H Radiography Diagnostic Testing: Clinical Impression(s) from Imaging Studies Chest X-Ray 10/23/24 02:52 IMPRESSION: Moderate size left pleural effusion with compressive atelectasis in the left lung base. Moderate cardiomegaly. Electronically Signed: Fannie Smith MD at 4:37 EST , Discharge Plan Dx/Rx/DC Orders Clinical Impression: Atrial fibrillation, HFrEF (heart failure with reduced ejection fraction), Pleural effusion on left, Elevated troponin Disposition Disposition: Acute Care Hospital [facility] Discharge Date/Time: 10/23/24 05:10
[2024-10-23 03:43] LABS: Anion Gap 10 (5-15); BUN 57 mg/dL (7-18); BUN/Creat Ratio 21.8 RATIO (10-20); Calcium,Total 9.9 mg/dL (8.5-10.1); Chloride 101 mmol/L (98-107); Creatinine, Serum 2.62 mg/dL (0.70-1.30); EST Glomerular Filtration Rate 25 mL/min (>60); Est Glom Filt Rate - Afr Amer 30 mL/min (>60); Estimated Creatinine Clearance 22.34 ml/min; Glucose 107 mg/dL (74-106); Sodium Level 136 mmol/L (136-145); Troponin-I HS (w/2H Reflex) 187 pg/mL (3.0-78.0)
[2024-10-23 04:14] LABS: Reflex Troponin-HS? (from REC) Y
[2024-10-23 04:35] LABS: BNP,B-Type NATRIURETIC PEPTIDE 3931.2 pg/mL (0-100)
--- NOTE | 2024-10-23 04:46 | PCM.HP.STD ---
HPI - General General Date of Admission: 10/23/24 HPI Narrative MOLLY ANDERSEN, is a 89 M who presents emergency department because of shortness of breath. Denies any chest pain lightheadedness or dizziness but woke up this morning and felt like he could not breathe. In the ER he is 99% on room air. He did have an elevated troponin though he has not had a normal one in our system, his last 1 was in March and it was in the 140s. EKG is at baseline and no signs of ischemia. He did have an echo back in March with an EF of 5 to 10%, cardiology has spoken to him briefly about palliative care and hospice care. There were some medication changes recently on his cardiology visit on 10/10/2024 notably his Lasix was increased to 40 mg p.o. twice daily, and his Entresto was discontinued. In the ER today he is found to have left pleural effusion that does not appear to be significantly reducing his oxygen capacity. [facility] Medical History (Updated 10/23/24 @ 05:28 by Gwen Cano) Bradycardia Subtherapeutic international normalized ratio (INR) Elevated troponin Chest pain Shortness of breath Epistaxis Nasal bleeding Fatigue GI bleed HFrEF (heart failure with reduced ejection fraction) Elevated serum creatinine Chest tightness Dyspnea on exertion COVID-19 Nasal congestion Essential hypertension BPH (benign prostatic hyperplasia) Atherosclerosis of coronary artery of [place] heart without angina pectoris PAF (paroxysmal atrial fibrillation) (09/03/22) Obesity (BMI 30.0-34.9) Hyperlipidemia Home Medications ?Medication ?Instructions ?Recorded ?Last Taken ?Type apixaban 2.5 mg tablet (Eliquis) 2.5 mg PO BID STOP WARFARIN #60 04/30/24 Unknown Rx tabs carvedilol 3.125 mg tablet 3.125 mg PO BID #60 tabs 04/30/24 Unknown Rx sacubitril 24 mg-valsartan 26 mg 0.5 tab PO BID #180 tabs 04/30/24 Unknown Rx tablet (Entresto) spironolactone 25 mg tablet 25 mg PO DAILY #30 tabs 05/01/24 Unknown Rx (Aldactone) Handicap Placard #1 ea 06/26/24 Unknown Rx furosemide 40 mg tablet 40 mg PO BID 10/10/24 Unknown History isosorbide mononitrate 30 mg 30 mg PO QDAY 10/10/24 Unknown History tablet,extended release 24 hr multivitamin 1 tab PO QAM 10/10/24 Unknown History Allergy/AdvReac Type Severity Reaction Status Date / Time rivaroxaban (From Xarelto) AdvReac Severe Excessive Verified 10/23/24 02:09 bleeding Family History Son CAD (coronary artery disease) Surgical History History of left heart catheterization (01/17/19) H/O hand surgery History of arthroscopic knee surgery History of herniorrhaphy History of repair of rotator cuff History of cardioversion (~02/27/14) History of coronary artery stent placement (06/21/17) Social History Smoking Status: Former smoker how long ago did patient quit smokin years ago alcohol intake: current alcohol intake frequency: a few times a month Alcohol type: other substance use type: does not use caffeine: Yes Type: coffee Number of servings: 2 ROS Constitutional Constitutional: Denies chills, fatigue, fever(s) or malaise Eyes Eyes: Denies blurry vision ENT HEENT: Denies headache(s) or nasal discharge Cardiovascular Cardiovascular: Denies chest pain, dyspnea on exertion or syncope Respiratory/Chest Respiratory/Chest: Reports shortness of breath at rest; Denies cough or shortness of breath with exertion Gastrointestinal Gastrointestinal: Denies constipation, diarrhea, nausea or vomiting Genitourinary Genitourinary: Denies dysuria Neurologic Neurologic: Denies focal weakness, numbness or tremor(s) Psychiatric Psychiatric: Denies anxiety or depression Vital Signs Vital Signs Vital Signs: 10/23/24 02:06 10/23/24 02:06 10/23/24 03:06 Temperature 97.8 F Temperature Source Oral Pulse Rate 121 H 112 H Respiratory Rate 18 18 Respiratory Effort Normal Non-Labored Blood Pressure 134/104 H 117/89 H Blood Pressure Mean 114 98 Pulse Ox 95 98 Oxygen Delivery Method Room Air Room Air 10/23/24 03:58 10/23/24 04:00 Temperature 98.2 F Temperature Source Pulse Rate 99 106 H Respiratory Rate 19 H 18 Respiratory Effort Blood Pressure 112/78 108/96 H Blood Pressure Mean 89 100 Pulse Ox 99 99 Oxygen Delivery Method Room Air Weight Weight: 214 lb 1.102 oz Body Mass Index (BMI) 30.7 Physical Exam Narrative General: Alert, Oriented x3, Cooperative, No apparent distress HEENT: Atraumatic, PERRLA, EOMI, Normocephalic Oral: Moist Mucosa Neck: Supple, No JVD Lungs: Diminished, Normal air movement, No rhonchi, No wheeze, No rales Cardiovascular: Irregular rate and rhythm, Normal S1, Normal S2, No murmurs Abdomen: Soft, Non Tender, Non-Distended, No Hepato-splenomegaly Extremities: No edema, Capillary Refill Less than 3 Seconds Skin: No rashes, No breakdown Musculoskeletal: No Tenderness to Palpation of Joints or Extremities Neurological: No focal neurological deficits, Motor Exam 5/5 strength throughout, Sensory exam intact to light touch and pain Psych/Mental Status: Normal Affect, Appropriate Results Lab / Micro Data 10/23/24 01:55 10/23/24 01:55 Labs: Laboratory Results - last 24 hr 10/23/24 01:55: WBC 6.5, RBC 4.98, Hgb 15.2, Hct 48.0, MCV 96.4 H, MCH 30.5, MCHC 31.7 L, RDW Std Deviation 49.9 H, RDW Coeff of Yadira 14.5, Plt Count 180, MPV 11.7, Immature Gran % (Auto) 0.200, Neut % (Auto) 69.9, Lymph % (Auto) 18.1 L, [place] % (Auto) 10.8 H, Eos % (Auto) 0.8, Baso % (Auto) 0.2, Absolute Neuts (auto) 4.5, Absolute Lymphs (auto) 1.17, Nucleated RBC % 0, Sodium 136, Potassium 5.0, Chloride 101, Carbon Dioxide 25.0, Anion Gap 10, BUN 57 H, Creatinine 2.62 H, Estim Creat Clear Calc 22.34, Est GFR (MDRD) Af Amer 30 L, Est GFR (MDRD) Non-Af 25 L, BUN/Creatinine Ratio 21.8 H, Glucose 107 H, Calcium 9.9, Troponin I High Sens 187 H*, B-Natriuretic Peptide Cancelled 10/23/24 03:29: B-Natriuretic Peptide Cancelled 10/23/24 04:11: B-Natriuretic Peptide 3931.2 H Micro: Microbiology 10/23/24 03:00 Mucosa - Nose SARS-CoV-2, Influenza & RSV (PCR) - Final Imaging Radiology Impression Chest X-Ray 10/23/24 02:52 IMPRESSION: Moderate size left pleural effusion with compressive atelectasis in the left lung base. Moderate cardiomegaly. Electronically Signed: Fannie Smith MD at 4:37 EST , Assessment & Plan Assessment/Plan (1) Pleural effusion on left: (2) Elevated troponin: (3) Atrial fibrillation: PLAN: Plan 1. Increase shortness of breath/paroxysmal A-fib/chronic systolic CHF/CAD status post stent/essential HTN/HLD ? Will hold Eliquis for now in case if thoracentesis is wanted ? Proceed with echo ? Can resume his home blood pressure medications when verified ? Renal function is slightly elevated though does not meet criteria for RAFAEL at the moment of 2.62 ? Continue with Aldactone ? I had a 20-minute conversation with him and his family about advance care planning specifically the differences between palliative care and hospice care, attempting to make clear that he has very advanced cardiac dysfunction. I offered to have social work consult palliative care while he was here in the hospital discussed options which they declined. ? Given his age and his renal function stress test and cardiac catheterization is a very little benefit and much higher risk therefore will not consult cardiology or order either these tests DVT: Ambulation 55 minutes was spent on direct patient care, including documentation as well as chart review and collaboration with colleagues Charges/Coding Multi Select Codes Visit Charges Visit Charges: 80719 Init Hosp L2 Hospitalists' Procedures Procedures: 60653 Advncd Care Plan 30 Min
[2024-10-23 04:49] LABS: Troponin-I HS 169 pg/mL (3.0-78.0)
--- NOTE | 2024-10-23 05:17 | ECHOD_ITS ---
Reason For Study: CHF Procedure This was a 2D Doppler, Color Flow transthoracic echocardiogram. Exam performed portable in patient room. Left Ventricle Normal LV size. The left ventricular ejection fraction is 10 %. There is severe global hypokinesis of the left ventricle. Right Ventricle Moderately dilated right ventricle. ICD or pacer leads identified within the right ventricle. Mild to moderate global right ventricular systolic dysfunction. Atria The left atrium is severely enlarged. The right atrium is severely enlarged. Mitral Valve Bileaflet diffuse mitral valve thickening. Mild (1+) eccentric mitral valve insufficiency. Tricuspid Valve Normal tricuspid valve. Moderately severe (3+) tricuspid valve insufficiency. Pulmonary artery systolic pressure is 50 mmHg. Aortic Valve Trisinus/trileaflet aortic valve. Moderate focal aortic valve thickening. Pulmonic Valve Normal pulmonic valve. Great Vessels Normal aortic root. The pulmonary artery is normal size. and partially collapses. Pericardium/Pleural No pericardial effusion. MMode/2D Measurements & Calculations LVIDd: 5.5 cm IVSd: 1.1 cm LVOT diam: 2.1 cm LVIDs: 5.2 cm LVPWd: 1.4 cm LVOT area: 3.5 cm2 RVDd: 4.7 cm FS: 6.4 % Ao root diam: 3.8 cm LAV(MOD-bp): 157.8 ml LVAd ap4: 41.9 cm2 LAV(MOD-bp) Indexed: 73.5 ml/m2 LVLd ap4: 8.7 cm LAV(MOD-sp2): 173.8 ml EDV(MOD-sp4): 164.0 ml LAV(MOD-sp4): 142.1 ml EDV(sp4-el): 171.5 ml LVAs ap4: 40.6 cm2 LVLs ap4: 8.6 cm ESV(MOD-sp4): 156.0 ml ESV(sp4-el): 163.3 ml EF(MOD-sp4): 4.9 % EF(sp4-el): 4.8 % SV(MOD-sp4): 8.0 ml SV(sp4-el): 8.2 ml Aortic Valve Planimetry: 1.00 cm2 SI(MOD-sp4): 3.7 ml/m2 LA A4 area: 35.2 cm2 LA dimension(2D): 6.4 cm RA A4 area: 37.0 cm2 Doppler Measurements & Calculations MV E max ras: 103.6 cm/sec MV V2 max: 121.1 cm/sec Ao V2 max: 157.1 cm/sec MV max P.9 mmHg Ao max P.9 mmHg MV V2 mean: 61.0 cm/sec Ao V2 mean: 105.3 cm/sec MV mean P.9 mmHg Ao mean P.2 mmHg MV V2 VTI: 18.1 cm Ao V2 VTI: 23.8 cm AV (velocity ratio): 0.28 MVA(VTI): 1.3 cm2 LEX(I,D): 0.97 cm2 LEX(V,D): 1.1 cm2 LV V1 max: 49.8 cm/sec MR max ras: 463.2 cm/sec SV(LVOT): 23.1 ml LV V1 max P.0 mmHg MR max P.8 mmHg LV V1 mean P.44 mmHg MR mean ras: 336.0 cm/sec LV V1 mean: 30.2 cm/sec MR mean P.3 mmHg LV V1 VTI: 6.6 cm MR VTI: 129.5 cm TR max ras: 329.6 cm/sec TR max P.5 mmHg ECHO/Echo Complete Interpretation Summary The left ventricular ejection fraction is 10 %. There is severe global hypokinesis of the left ventricle. Normal LV size. The left atrium is severely enlarged. The right atrium is severely enlarged. Mild (1+) eccentric mitral valve insufficiency. Compared to previous study, the left ventricular systolic function is the same. . Ordering Physician: Stevie Lehman Performed By: Fred Reyes RCS
--- NOTE | 2024-10-23 07:51 | PCM.PN.HOSP ---
Reason for Visit Reason for Visit: Diagnoses Unspecified atrial fibrillation (10/23/24) Pleural effusion, not elsewhere classified (10/23/24) Other specified abnormal findings of blood chemistry (10/23/24) Subjective Subjective Has been short of breath for several months with ambulation. Is not really significant change during this time. Objective Data Objective Data Vital Signs: Vital Signs Temp Pulse Resp BP Pulse Ox O2 Del Method 35.8 C L 97 18 95/74 97 Room Air 10/23/24 05:22 10/23/24 05:22 10/23/24 05:22 10/23/24 05:22 10/23/24 05:22 10/23/24 05:30 Oxygen Delivery Method Room Air Weight: 86.5 kg Body Mass Index (BMI) 27.3 Intake & Output: Intake and Output for Last 24 Hours 10/21/24 10/22/24 10/23/24 23:59 23:59 23:59 Intake Total 0 / 0 Balance 0 / 0 Lab / Micro Data 10/23/24 01:55 10/23/24 01:55 Labs: Laboratory Results - last 24 hr 10/23/24 01:55: WBC 6.5, RBC 4.98, Hgb 15.2, Hct 48.0, MCV 96.4 H, MCH 30.5, MCHC 31.7 L, RDW Std Deviation 49.9 H, RDW Coeff of Yadira 14.5, Plt Count 180, MPV 11.7, Immature Gran % (Auto) 0.200, Neut % (Auto) 69.9, Lymph % (Auto) 18.1 L, [place] % (Auto) 10.8 H, Eos % (Auto) 0.8, Baso % (Auto) 0.2, Absolute Neuts (auto) 4.5, Absolute Lymphs (auto) 1.17, Nucleated RBC % 0, Sodium 136, Potassium 5.0, Chloride 101, Carbon Dioxide 25.0, Anion Gap 10, BUN 57 H, Creatinine 2.62 H, Estim Creat Clear Calc 22.34, Est GFR (MDRD) Af Amer 30 L, Est GFR (MDRD) Non-Af 25 L, BUN/Creatinine Ratio 21.8 H, Glucose 107 H, Calcium 9.9, Troponin I High Sens 187 H*, B-Natriuretic Peptide Cancelled 10/23/24 03:29: B-Natriuretic Peptide Cancelled 10/23/24 04:11: Troponin I High Sens 169 H*, B-Natriuretic Peptide 3931.2 H Micro: Microbiology 10/23/24 03:00 Mucosa - Nose SARS-CoV-2, Influenza & RSV (PCR) - Final Radiography Diagnostic Testing: Radiology Impression Chest X-Ray 10/23/24 02:52 IMPRESSION: Moderate size left pleural effusion with compressive atelectasis in the left lung base. Moderate cardiomegaly. Electronically Signed: Fannie Smith MD at 4:37 EST , Physical Exam Const alert and no apparent distress Constitutional Narrative: Patient resting in bed and no respiratory distress. No conversational dyspnea. Nontoxic. Resp normal respiratory effort Assessment & Plan Assessment/Plan (1) Pleural effusion on left: (2) Elevated troponin: (3) Atrial fibrillation: PLAN: Plan Dyspnea Multifactorial due to ischemic cardiomyopathy with an EF of 5 to 10%, left-sided pleural effusion. I discussed with he and his family who are at bedside about thoracentesis and recommended against it at this time. The reason I recommended against it is because it is relatively small and that would carry a higher risk of potential of pneumothorax which would require chest tube. With his very low ejection fraction, it would be very taxing on him and I recommended against that at this time. However, if his effusion were to get more significant, that he may need a thoracentesis or possibly a Pleurx catheter. Talked with him and his family about palliative care. I recommended palliative care because of his severe cardiomyopathy as well as his symptoms. Told him that they would not fix anything but to help him with symptom management. They were open to discussing with palliative care as outpatient. Will discharge patient to home with outpatient palliative care management.
[2024-10-23 08:31] LABS: Troponin-I HS 168 pg/mL (3.0-78.0)
[2024-10-23] MEDS: Spironolactone 25 MG Tablet PO (09:21)
--- NOTE | 2024-10-23 09:47 | PCM.DC.SUM ---
Providers Date of Admission: 10/23/24 Primary Care Physician: Dr. Sunny Justice MD Reason For Visit: SOB Diagnosis Discharge Diagnosis (1) Pleural effusion on left: Status: Acute Code(s): J90 - Pleural effusion, not elsewhere classified (2) Elevated troponin: Status: Acute Code(s): R79.89 - Other specified abnormal findings of blood chemistry (3) Atrial fibrillation: Status: Acute Code(s): I48.91 - Unspecified atrial fibrillation Plan Dyspnea Multifactorial due to ischemic cardiomyopathy with an EF of 5 to 10%, left-sided pleural effusion. I discussed with he and his family who are at bedside about thoracentesis and recommended against it at this time. The reason I recommended against it is because it is relatively small and that would carry a higher risk of potential of pneumothorax which would require chest tube. With his very low ejection fraction, it would be very taxing on him and I recommended against that at this time. However, if his effusion were to get more significant, that he may need a thoracentesis or possibly a Pleurx catheter. Talked with him and his family about palliative care. I recommended palliative care because of his severe cardiomyopathy as well as his symptoms. Told him that they would not fix anything but to help him with symptom management. They were open to discussing with palliative care as outpatient. Will discharge patient to home with outpatient palliative care management. Medications at Discharge Home Medications apixaban 2.5 mg tablet (Eliquis) 2.5 mg PO BID STOP WARFARIN #60 tabs 04/30/24 carvedilol 3.125 mg tablet 3.125 mg PO BID #60 tabs 04/30/24 sacubitril 24 mg-valsartan 26 mg tablet (Entresto) 0.5 tab PO BID #180 tabs 04/30/24 spironolactone 25 mg tablet (Aldactone) 25 mg PO DAILY #30 tabs 05/01/24 Handicap Placard #1 ea 06/26/24 furosemide 40 mg tablet 40 mg PO BID 10/10/24 isosorbide mononitrate 30 mg tablet,extended release 24 hr 30 mg PO QDAY 10/10/24 multivitamin 1 tab PO QAM 10/10/24 Weight / BMI Weight Weight: 86.5 kg Body Mass Index (BMI) 27.3 ABG / Lab / Microbiology Data 10/23/24 01:55 10/23/24 01:55 Laboratory: Laboratory Results - last 24 hr 10/23/24 01:55: WBC 6.5, RBC 4.98, Hgb 15.2, Hct 48.0, MCV 96.4 H, MCH 30.5, MCHC 31.7 L, RDW Std Deviation 49.9 H, RDW Coeff of Yadira 14.5, Plt Count 180, MPV 11.7, Immature Gran % (Auto) 0.200, Neut % (Auto) 69.9, Lymph % (Auto) 18.1 L, [place] % (Auto) 10.8 H, Eos % (Auto) 0.8, Baso % (Auto) 0.2, Absolute Neuts (auto) 4.5, Absolute Lymphs (auto) 1.17, Nucleated RBC % 0, Sodium 136, Potassium 5.0, Chloride 101, Carbon Dioxide 25.0, Anion Gap 10, BUN 57 H, Creatinine 2.62 H, Estim Creat Clear Calc 22.34, Est GFR (MDRD) Af Amer 30 L, Est GFR (MDRD) Non-Af 25 L, BUN/Creatinine Ratio 21.8 H, Glucose 107 H, Calcium 9.9, Troponin I High Sens 187 H*, B-Natriuretic Peptide Cancelled 10/23/24 03:29: B-Natriuretic Peptide Cancelled 10/23/24 04:11: Troponin I High Sens 169 H*, B-Natriuretic Peptide 3931.2 H 10/23/24 07:35: Troponin I High Sens 168 H* Microbiology: Microbiology 10/23/24 03:00 Mucosa - Nose SARS-CoV-2, Influenza & RSV (PCR) - Final Radiography Diagnostic Testing: Radiology Impression Chest X-Ray 10/23/24 02:52 IMPRESSION: Moderate size left pleural effusion with compressive atelectasis in the left lung base. Moderate cardiomegaly. Electronically Signed: Fannie Smith MD at 4:37 EST , D/C Instructions Discharge Diet: - (1.5 liters/day of fluid. ) DC O2, CPAP, BIPAP Needs Additional Home O2 Discharge instructions: No DC home with Oxygen: No Meaningful Use Info Meaningful Use Meaningful Use Diagnoses (Choose all that apply): None applicable Ischemic Stroke Statin Dosing Therapy Reference: STATIN DOSE THERAPY REFERENCE: * Patients > 75 years receive moderate or high dose statin therapy. * Patients 75 years or YOUNGER should receive HIGH intensity statin dose unless contraindicated. You will be required to document reason for non-treatment if statin daily dose does not meet guidelines. HIGH DOSE STATIN THERAPY DAILY Atorvastatin > than or = to 40 mg Rosuvastatin > than or = to 20 mg Amlodipine + Atorvastatin > than or = to 2.5/40 mg Ezetimibe + Simvastatin 10/80 mg Simvastatin 80mg Discharge Plan Admission Admit Date/Time: 10/23/24 04:38 Primary Reason for Your Visit: dyspnea Attending Provider: Kyle Gonsales Primary Care Provider: Sunny Justice Consulting Providers: Stevie Lehman Instructions Additional Instructions / Restrictions: You are short of breath due to your known cardiomyopathy (weak heart) and small left-sided pleural effusion (fluid between your chest and your lung). As we discussed, I am recommending holding off on a thoracentesis (draining fluid off your lung) due to the risk of complications. However if your shortness of breath gets worse, that could be a sign that this fluid is getting bigger and that draining fluid from your lung may be advisable at that time. So if you are becoming more short of breath, notify your physician or return to the emergency room for further evaluation. As we also discussed, I am recommending palliative care services to be involved in your case. I feel that you would benefit from their services as they can help with your symptoms though not fix the underlying process in regards to your shortness of breath. Discharge Orders/Prescriptions Prescriptions: Continued isosorbide mononitrate 30 mg tablet extended release 24 hr 30 mg PO QDAY multivitamin Tablet 1 tab PO QAM furosemide 40 mg tablet 40 mg PO BID Entresto 24-26 mg tablet 0.5 tab PO BID Qty: 180 3RF Eliquis 2.5 mg tablet 2.5 mg PO BID Qty: 60 11RF carvedilol 3.125 mg tablet 3.125 mg PO BID Qty: 60 11RF Rx Instructions: must administer with a meal/food spironolactone [Aldactone] 25 mg tablet 25 mg PO DAILY Qty: 30 11RF (DME) Handicap Placard See Rx Instructions .Route .MEDSUPPLY Qty: 1 0RF Rx Instructions: Expiration Date: 06/26/2029 Referrals / Follow Up: Sunny Justice MD [Primary Care Provider] - Disposition Disposition (needs filled in before D/C Order can be placed): Home, Self Care Charges/Coding Visit Charges OBSV E&M: 57370 Observ/hosp same date L2
--- NOTE | 2024-10-23 10:55 | CASEMGMT ---
LEON JOAQUIN received order from hospitalist for palliative consult. Screening tool completed and referral made to [facility]. Patient has order for discharge. RN CM in to discuss needs at discharge, at bedside. RN CM updated patient and regarding palliative consult, patient and voiced understanding and appreciation. Patient denied further needs or help at discharge. Patient and had no further questions or concerns.
== END 2024-10-23 09:52 | disposition home or self-care (01) ==
LOC: ED 04:40 → PCU 05:15
PROVIDERS: Admitting Provider Family Medicine; Emergency Provider Emergency Medicine; PCP Family Medicine
DX: I11.0 Hypertensive heart disease with heart failure (principal); I50.22 Chronic systolic (congestive) heart failure; I48.0 Paroxysmal atrial fibrillation; Z87.891 Personal history of nicotine dependence; I25.10 Atherosclerotic heart disease of native coronary artery without angina pectoris; I44.7 Left bundle-branch block, unspecified; E78.00 Pure hypercholesterolemia, unspecified; N40.0 Benign prostatic hyperplasia without lower urinary tract symptoms; Z79.899 Other long term (current) drug therapy; R79.89 Other specified abnormal findings of blood chemistry; I25.5 Ischemic cardiomyopathy; Z79.01 Long term (current) use of anticoagulants; J91.8 Pleural effusion in other conditions classified elsewhere
CPT/HCPCS: 36415; 71046; 80048; 83880; 84484; 85025; 87631; 93005; 93306; 99221; 99285; Q9957; A4216; G0378